=== PATIENT | female | born 1930 | race Caucasian/White ===

== ENCOUNTER 2017-02-14 21:23 | Inpatient (IN) | payer MEDICARE, BC ==
[~2017-02-14] VITALS: Ht 162.6 cm; Wt 81.7 kg
[~2017-02-14 21:23] MED LIST: ACEBUTOLOL HCL400 MG PO; ASPIRIN325 MG PO; CLOTRIMAZOLE-BE15 GM TOP; DILTIA XT240 MG PO; DILTIAZEM 24HR120 M1 PO; DULOXETINE HCL30 MG PO; GLUCOPHAGE XR750 MG PO; HYDROCODON-ACE1 EAC8 PO; LISINOPRIL20 MG PO; LISINOPRIL40 MG PO; METFORMIN HCL1000 MG PO; NORCO 10-325 T1 EACH PO; NORCO 5-325 TA1 EACH PO; NORCO 7.5-3251 EACH PO; OMEPRAZOLE40 MG PO; TERAZOSIN HCL10 MG PO; TERAZOSIN HCL5 MG PO; VITAMIN D2000 UNI1 PO; ZOFRAN4 MG PO
--- NOTE | 2017-02-15 00:15 | NUR ---
02/15/17 0015 Vivienne Mohr 0006 - PT ARRIVED TO PACU. OPA IN PLACE AND REMOVED BY RADIOLOGY ORDERLY AT 0007. PT ARRIVED WITH [address] ONE IN LEFT UPPER ARM AND 2ND PIV IN RIGHT WRIST (SAILINE LOCKED). BOTH PIVS WNL.
--- NOTE | 2017-02-15 01:15 | NUR ---
PT ARRIVED IN HER BED FROM PACU, REPORT RECEIVED FROM TRISHA CHI. PT IS ALERT/ORIENTED, DENIES PAIN AT THIS TIME. HAD SPINAL ANESTHESIA, DERMATOME AT T9. LUNGS CLEAR, 2L VIA NC, ATTEMPTED TO TITRATE DOWN TO RA, BUT PT DESATURATED. HR REGULAR. BOWEL TONES ACTIVE. BED BATH GIVEN, REDNESS NOTED TO COCCYX, BLANCHABLE, SMALL OPEN BLISTERS ALSO NOTED, PICTURES IN CHART, BARRIER CREAM APPLIED. CERRATO IN PLACE, DRAINING FREELY. 2 IV SITES, PATENT. DRESSING TO RIGHT ANKLE HAS MODERATE AMOUNT OF SEROSANGUINOUS DRAINAGE PRESENT, PLACED ABD UNDER HEEL. EXTERNAL FIXATION AND HEEL PRETECTORS IN PLACE. PT ORIENTED TO ROOM, CALL LIGHT WITHIN REACH. DENIES FURTHER REQUESTS AT THIS TIME.
--- NOTE | 2017-02-15 03:30 | NUR ---
PT CONTINUES TO DENY PAIN. 2L O2 VIA NC IN PLACE. DENIES NEEDS AT THIS TIME.
--- NOTE | 2017-02-15 06:23 | NUR ---
ASSESSMENT COMPLETED. PT IS ALERT/ORIENTED, DENIES PAIN. SPINAL ANESTHESIA HAS RESOLVED, PT HAS FULL SENSATION AND IS ABLE TO WIGGLE TOES. PEDAL PULSES WERE PALPABLE AND STRONG, CAP REFILL <3 SECONDS, EXTREMITES ARE WARM TO TOUCH. LUNGS CLEAR, 2L VIA NC, PULSE OX. HR REGULAR. BOWEL TONES ACTIVE. MODERATE AMOUNT OF SEROSANGUINOUS DRAINAGE UNDER RIGHT ANKLE/HEEL, ADDITIONAL ABD PLACED UNDERNEATH FOOT, EXTERNAL FIXATION IN PLACE. CERRATO IN PLACE, ONLY EMPTIED 90ML FOR THE PAST 4 HOURS, DR. ESPITIA NOTIFIED, NEW ORDERS FOR 1L NS BOLUS RECEIVED. PT REPORTS ITCHING, NUBAIN GIVEN. PT DENIES FURTHER REQUESTS, CALL LIGHT IS WITHIN REACH.
--- NOTE | 2017-02-15 06:27 | NUR ---
PT ALERT/ORIENTED. NO PAIN. SPINAL RESOLVED, FULL SENSATION, CAN WIGGLE TOES. CMS INTACT, PEDAL PULSES STRONG, CAP REFILL <3 SECONDS, EXTREMITIES WARM. LUNGS CLEAR, 2L VIA NC, PULSE OX. HR REGULAR. BOWEL TONES ACTIVE, NO NAUSEA, TOLERATING CLEAR LIQUIDS. NUBAIN GIVEN FOR ITCHING. CERRATO DRAINING FREELY, 1L NS BOLUS GIVEN FOR INADEQUATE UO. REDNESS/BLISTERS TO COCCYX, BLANCHABLE, PICS IN CHART. DRESSING TO RIGHT ANKLE HAS MODERATE AMOUNT OF DRAINAGE UNDERNEATH HEEL, ABD PLACED. EXTERNAL FIXATION, HEEL PROTECTORS IN PLACE, TEDS TO LLE. D5NS+20K @125, IV ABX: ZOSYN, ANCEF.
--- NOTE | 2017-02-15 07:00 | NUR ---
BEDSIDE HANDOFF REPORT RECEIVED FROM SERVICE DELIVERY CONSULTANT RN. PT RESTING IN BED, LEFT UNDISTURBED. IV FLUID BOLUS INFUSING.
--- NOTE | 2017-02-15 07:23 | OR ---
[facility] [address], [place] [address] Signed DATE OF SERVICE: 02/14/2017 PREOPERATIVE DIAGNOSIS: Grade 3 ankle fracture dislocation, open. POSTOPERATIVE DIAGNOSIS: Grade 3 ankle fracture dislocation, open. PROCEDURE PERFORMED: Irrigation and debridement of skin, subcutaneous tissue, and bone. Open reduction and application of external fixation, right ankle. SURGEON: Hossein Caldera MD. ASSISTANTS: Jennifer Basilio PA-C and JAI Henry. Jennifer was present for the entire surgery in critical positioning, retraction, holding reduction while the application of the fixture was obtained. ANESTHESIA: Spinal. BLOOD LOSS: Minimal. TOURNIQUET TIME: None. BRIEF HISTORY: Valentina is an 86-year-old female who suffered a ground level fall some time tonight while trying to close her door. She had apparently been incontinent of stool and had gross feces all over the foot, ankle, and bone. The laceration was 12 cm long and the bone was sticking out about 3 inches. Risks, benefits and alternatives of operative treatment discussed with her and she elected to proceed. DESCRIPTION OF PROCEDURE: Once the consent was obtained, she was taken to the operating room. After adequate anesthesia, she was placed on the operating table. All downside pressure points were well padded. The leg was prepped and draped in a standard sterile fashion. The bone was sticking out and we cleaned this meticulously using a scrub brush and regular Hibiclens. The ankle was then reduced, which was obtained fairly easily. It was then held in position and checked using image intensifier. The two 5.0 Schanz pins were then placed in the tibia and one in the talar neck and one in the calcaneus. The adjustable large external fixator was then applied to the pins and while the reduction was being held under image intensifier guidance, the fixture was tightened up. The reduction films looked good. We then washed out the wound in the bone using a total of 6 L antibiotic irrigation. The wound was then inspected. A pure oblique longitudinal laceration of the skin did not appear to be too compromised. We then elected to go ahead and close it Electronically Signed By: HOSSEIN CALDERA MD 02/15/17 0723 PATIENT NAME: MARIETTA BROOKS OPERATIVE REPORT DATE OF : 34 PHYSICIAN: HOSSEIN CALDERA MD REPORT #: [id number] REPORT IS CONFIDENTIAL AND NOT TO BE RELEASED WITHOUT AUTHORIZATION [address] [address] Signed using a wound winch type suture configuration. This pulled the skin together with no significant problems. The wounds were then dressed with Mepilex dressing, 4x8's, and Kerlix gauge. She tolerated the procedure well. All sponge, needle, and instrument counts were correct. Hossein Caldera MD BA/Cayla /[phone] Electronically Signed By: HOSSEIN CALDERA MD 02/15/17 0723 PATIENT NAME: MARIETTA BROOKS OPERATIVE REPORT DATE OF : 34 PHYSICIAN: HOSSEIN CALDERA MD REPORT #: [id number] REPORT IS CONFIDENTIAL AND NOT TO BE RELEASED WITHOUT AUTHORIZATION
--- NOTE | 2017-02-15 07:28 | NUR ---
MD TO BEDSIDE. CERRATO CATH ORDER CLARIFIED WITH MD, TO KEEP CERRATO CATH IN PLACE.
--- NOTE | 2017-02-15 07:55 | NUR ---
PT RESTING IN BED. PT DENIES PAIN. PT LUNG SOUNDS CLEAR, ON 2L NC. PT DENIES SOB, DENIES CHEST PAIN. PT DENIES NAUSEA, TOLERATING CLEAR LIQUID, ADVANCED TO REGULAR DIET, BOWEL TONES ACTIVE. PT WITH CERRATO CATH IN PLACE, LOW URINE OUTPUT, FLUID BOLUS INFUSING NOW. PT CMS INTACT, ABLE TO WIGGLE RIGHT TOES, PULSES PALPABLE. MODERATE AMOUNT OF SANGIUNOUS DRAINAGE TO RIGHT ANKLE DRESSING, ICE PACK IN PLACE. LLE CHAITANYA HOSE, BLE HEEL PROTECTORS. PT ASSISTED WITH ORDERING BREAKFAST. PT DENIES NEEDS AT THIS TIME.
[2017-02-15] MEDS ORDERED: GABAPENTIN100 MG PO ×2 (10:23→11:35)
[2017-02-15] MEDS ORDERED: CARTIA XT120 MG PO (10:23)
--- NOTE | 2017-02-15 11:35 | NUR ---
PT BLOOD GLUCOSE 461, MD NOTIFED, VERBAL ORDER TO GIVE SLIDING SCALE INSULIN AND ORDERED HOME MEDS SCHEDULED.
--- NOTE | 2017-02-15 11:47 | NUR ---
MED REC COMPLETE WITH SAFEWAY REFIL HISTORY AND CAREGIVER INTERVIEW.
--- NOTE | 2017-02-15 12:00 | NUR ---
PT RESTING IN BED. PT EATING LUNCH, POOR APPETITE. PT O2 SATS 98% ON 2L, WEANED TO 1L, CONTINUOUS PULSE OX IN PLACE, LUNG SOUNDS CLEAR. PT DENIES NAUSEA, BOWEL TONES ACTIVE. CMS INTACT, PULSES PALPABLE, ABLE TO WIGGLE TOES. HEEL PROTECTORS IN PLACE. PT DENIES NEEDS AT THIS TIME. DISCUSSED PLAN TO TRANSFER TO CHAIR THIS AFTERNOON, PT AGREEABLE.
--- NOTE | 2017-02-15 12:09 | NUR ---
SPOKE WITH PATIENT AND CAREGIVER MADDI [phone]. PATIENT HAS TWO CAREGIVERS. THEY ARE THERE 2 HOURS IN THE MORNING AND 2 HOURS EACH EVENING. 7 DAYS A WEEK. PT WANTS TO RETURN HOME AT DISCHARGE. DISCUSSED WITH HER THAT SHE WILL NEED SOME REHAB THERAPY TO SAFELY GET HOME. PATIENT STATES UNDERSTANDING BUT IS ADAMANT SHE WILL NOT GO TO A CORRECTION. AGREED THAT WE NEED TO WAIT UNTIL SATURDAY TO SEE HOW SHE IS DOING WITH THERAPY TO MAKE A DECISION. PATIENT HAS A SON BUT HE IS NOT PRESENT. CAREGIVER STATES THE SON HAS POA BUT IS SHE IS NOT ABLE TO COUNT ON HIM FOR HELP WITH CARE. CAREGIVER STATES PATIENTS DAUGHTER IS COMING FROM [place].
--- NOTE | 2017-02-15 13:29 | NUR ---
PT RESTING IN BED, ALERT AND ORIENTED. JOKED WITH ME I ENTERED RM. SHARED WITH ME HOW SHE BROKE HER ANKLE, AND THAT SHE IS A LITTLE EMBARRASED ABOUT THE WHOLE ORDEAL. SHE SEEMED TO TAKE IT IN STRIDE THOUGH. PT REQUESTED PRAYER. WILL CONTINUE TO FOLLOW
--- NOTE | 2017-02-15 14:04 | NUR ---
DAUGHTER DANNY BURKS CALLED AND PROVIDED WITH PT UPDATE, GIVEN PERMISSION FROM PT TO SPEAK WITH DAUGHTER. UPDATED ON SURGERY TO RIGHT ANKLE, PHYSICAL THERAPY AND PLAN FOR SWING BED. DAUGHTER STATES SHE IS TRYING TO COME OUT FROM [place] TO HELP.
--- NOTE | 2017-02-15 16:15 | NUR ---
PT RESTING IN CHAIR. PT REQUESTING PAIN MEDICATION, GIVEN 5MG OXYCODONE. PT WEANED TO ROOM AIR, SATS 93%, LUNG SOUNDS CLEAR. PT BOWEL TONED ACTIVE, DENIES NAUSEA. DISCUSSED PLAN OF CARE WITH PT, PT AGREEABLE TO SIT IN CHAIR UNTIL AFTER DINNER THEN WOULD LIKE TO REST IN BED. PT DENIES NEEDS AT THIS TIME.
--- NOTE | 2017-02-15 16:35 | NUR ---
After Bed bath this afternoon The nurse and I hoyered the patient to the chair.
--- NOTE | 2017-02-15 16:59 | NUR ---
PT LLUVIA SANDHU CALLED FOR UPDATE, GIVEN PREMISSION BY PT TO PROVIDE UPDATE.
--- NOTE | 2017-02-15 17:22 | NUR ---
PT BLOOD GLUCOSE 422, MD NOTIFIED, ORDER TO GIVE 11 UNITS INSULIN PER SLIDING SCALE. MD TO REVIEW MEDICATIONS.
--- NOTE | 2017-02-15 18:06 | NUR ---
PT ALERT/ORIENTED. PT WEANED TO RA, O2 SATS 93%, LUNG SOUNDS CLEAR. PT WORKED WITH PHYSICAL THERAPY, UNABLE TO STAND, ERNESTO LIFT TO CHAIR, NWB ON RLE. PT PAIN WELL CONTROLLED, GIVEN OXYCODONE X1. PT WITH POOR APPETITE, ADA DIET, SS INSULIN. PT SALINE LOCKED, IV ZOSYN. RLE WITH EXTERNAL FIXATOR, MODERATE AMOUNT OF DRAINAGE TO BACK OF HEEL. PT WITH CHAITANYA HOSE, HEEL PROTECTORS. PT WITH CERRATO CATH IN PLACE, DRAINING QS YELLOW URINE.
--- NOTE | 2017-02-15 19:05 | NUR ---
BEDSIDE SHIFT REPORT RECEIEVED FROM TRISHA ALMONTE. PT IS ALERT/ORIENTED, SITTING UP IN BED. RA. IV INFUSING WNL. CERRATO IN PLACE, DRAINING FREELY. DENIES NEEDS AT THIS TIME.
--- NOTE | 2017-02-15 21:23 | NUR ---
ASSESSMENT COMPLETED. ALERT/ORIENTED. PT STATES PAIN IS 2/10 AT REST, STATES IT INCREASED TO 7/10 WHILE I WAS FEELING PEDAL PULSES AND CHECKING CAP REFILL, 1 TAB OXYCODONE GIVEN. LUNGS CLEAR, SLIGHTLY DIM IN BASES, RA, PULSE OX. BOWEL TONES ACTIVE. CERRATO IN PLACE, DRAINING FREELY. DRESSING TO RIGHT ANKLE HAS MODERATE AMOUNT OF SEROSANGUINOUS DRAINAGE THAT IS REINFORCED WITH ABD. EXTERNAL FIXATION AND HEEL PROTECTORS IN PLACE, CHAITANYA HOSE TO LLE. CB, 5 UNITS NOVOLOG ADMINISTERED. PT DENIES FURTHER REQUESTS AT THIS TIME, CALL LIGHT IS WITHIN REACH. WILL CONTINUE TO MONITOR.
--- NOTE | 2017-02-15 21:33 | EKG ---
[facility] [address] [facility] [place] [address] Signed Normal sinus rhythm Moderate voltage criteria for LVH, may be normal variant Borderline ECG When compared with ECG of 13-JUL-2016 11:16, aberrant conduction is no longer present Nonspecific T wave abnormality no longer evident in Inferior leads Confirmed by ONOFRE SUMMERS MD ([id number]) on 02/15/2017 9:32:53 PM Electronically Signed By: ONOFRE SUMMERS MD 02/15/17 2133 PATIENT NAME: MARIETTA BROOKS Electrocardiogram DATE OF : 34 PHYSICIAN: ONOFRE SUMMERS MD REPORT #: [id number] REPORT IS CONFIDENTIAL AND NOT TO BE RELEASED WITHOUT AUTHORIZATION
--- NOTE | 2017-02-15 23:20 | NUR ---
CHECKED IN ON PT WHO STATED SHE'D BEEN MOVING AROUND IN BED AND NOW HER FOOT WAS BOTHERING HER, SHE ALSO STATED THAT THE BLANKETS FELT HEAVY ON HER TOES AND THAT IT WAS UNCOMFORTABLE. GAVE 1 TAB OF OXYCODONE TO TITRATE UP TO FULL DOSE. ALSO ADDED WIRE HALO TO FOOT OF BED SO THAT BLANKETS WOULD NOT REST ON PT'S FEET. PT STATED IV IN RIGHT WRIST WAS FEELING ITCHY. TOOK DOWN DRESSING TO EXAMINE, APPEARS TO BE IN PLACE, INFUSES WNL, NO REDNESS OR SWELLING NOTED. NEW DRESSING TO IV APPLIED, PT STATES IT FEELS BETTER. SHE DENIES FURTHER REQUESTS AT THIS TIME.
--- NOTE | 2017-02-16 02:44 | NUR ---
PT CURRENTLY SLEEPING, NO APPARENT DISTRESS. RESPIRATIONS EVEN AND UNLABORED. OXYGEN SATURATION 90% ON RA, HR:77. ZOSYN CONTINUES TO INFUSE. WILL CONTINUE TO MONITOR.
--- NOTE | 2017-02-16 04:00 | NUR ---
PT SLEEPING, NO APPARENT DISTRESS. RESPIRATIONS EVEN AND UNLABORED. ZOSYN INFUSION COMPLETED. NS INFUSING AT TKO. WILL CONTINUE TO MONITOR.
--- NOTE | 2017-02-16 04:57 | NUR ---
UNEVENTFUL SHIFT, PT SLEPT MAJORITY OF NIGHT. PAIN WELL CONTROLLED WITH PRN OXYCODONE, 5 MG GIVEN TWICE TO TITRATE TO FULL DOSE. LUNGS CLEAR, DIM IN BASES, RA, PULSE OX. HR REGULAR. BOWEL TONES ACTIVE, NO NAUSEA, ADA DIET, ACCUCHECKS, SLIDING SCALE. CERRATO IN PLACE DRAINING FREELY, UO QS. IV PATENT, RECEIEVED ZOSYN AND LAST DOSE OF ANCEF, NS AT TKO, PT IS VERY DIFFICULT IV START. DRESSING TO RIGHT ANKLE REMAINS UNCHANGED, MODERATE DRAINAGE NOTED ON GAUZE, REINFORCED WITH ABD. EXTERNAL FIXATOR, HEEL PROTECTORS, AND CHAITANYA TO LLE IN PLACE.
--- NOTE | 2017-02-16 06:08 | NUR ---
PT WOKE UP CONFUSED, WAS FOUND SITTING AT SIDE OF BED STATING SHE HAD TO GO TO BATHROOM. ASSISTED PT BACK TO BED AND REMINDED HER THAT SHE HAS A CERRATO. PT THOUGHT WE WERE IN [place], BUT WAS ABLE TO TELL ME THAT WE WERE AT [facility]. SHE COULDN'T TELL ME THE YEAR, BUT KNEW THE PRESIDENT. WHEN ASKED TO STATE HER BIRTHDAY, SHE KEPT SPELLING HER NAME, AFTER A FEW MINUTES SHE COULD SAY HER MONTH AND DAY OF BIRTHDAY, BUT WAS UNABLE TO SAY HER YEAR. RE-ORIENTED PT AND CHECKED BLOOD SUGAR: 170. ASSESSMENT COMPLETED. LUNGS CLEAR, DIM IN BASES, RA, SATS:95%. HR REGULAR. BOWEL TONES ACTIVE. DENIES PAIN AND NAUSEA. DRESSING TO RLE INTACT, NO NEW DRAINAGE. EDEMA NOTED IN BILATERAL FEET THIS MORNING, APPEARS NON-PITTING. PEDAL PULSES PALPABLE, CAP REFILL<3 SECONDS. BED ALARM NOW ON FOR SAFETY.
--- NOTE | 2017-02-16 06:14 | NUR ---
PT SLEPT WELL, PAIN WELL CONTROLLED WITH PRN OXYCODONE. WOKE SLIGHTLY CONFUSED THIS MORNING, RE-ORIENTED TO SURROUNDINGS, BLOOD SUGAR WAS 170. LUNGS CLEAR, DIM IN BASES, RA, PULSE OX. HR REGULAR. BOWEL TONES ACTIVE, NO NAUSEA. CERRATO IN PLACE, DRAINING FREELY. IV SL EXCEPT FOR IV ABX. ADA DIET, ACCUCHECKS, AND SLIDING SCALE. ERNESTO LIFT. BED ALARM ON FOR SAFETY. NON-PITTING EDEMA IN BILATERAL FEET. PEDAL PULSES PALPABLE, CAP REFILL <3 SECONDS, DENIES NUMBNESS AND TINGLING. EXTERNAL FIXATION, HEEL PROTECTORS, AND CHAITANYA TO LLE IN PLACE.
--- NOTE | 2017-02-16 07:05 | NUR ---
BEDSIDE HANDOFF REPORT RECEIVED FROM GRINDING MACHINE OPERATOR AUTOMATIC RN. PT RESTING IN BED. PT DENIES PAIN AT THIS TIME.
--- NOTE | 2017-02-16 08:40 | NUR ---
PT RESTING IN BED. PT DENIES PAIN. PT ON ROOM AIR, CONTINUOUS PULSE OX, O2 SATS 96%, LUNG SOUNDS CLEAR WITH DIMINISHED BASES. PT TOLERATING ADA DIET, BLOOD GLUCOE 166, GIVEN 1 UNIT SS INSULIN. PT CMS INTACT, PULSE PALPABLE, PT ABLE TO WIGGLE TOES. PT WITH DRESSING TO RLE, SMALL AMOUNT OF DRAINAGE PRESENT, UNCHANGED. PT WITH CHAITANYA HOSE TO LLE, BILATERAL HEEL PROTECTORS. PT WITH CERRATO CATH, DRAINING FREELY, YELLOW URINE. IV TO R WRIST NO LONGER PATENT, IV TO LUE PAINFUL TO FLUSH. IV ZOSYN HELD TO ESTABLISH NEW IV ACCESS. PT DENIES NEEDS AT THIS TIME.
--- NOTE | 2017-02-16 09:59 | NUR ---
NEW IV STARTED IN THE RIGHT ARM #22 GUAGE. OLD IV'S IN THE RIGHT WRIST AND THE LEFT UPPER ARM DC'D BOTH TIPS INTACT.
--- NOTE | 2017-02-16 10:05 | NUR ---
IV ACCESS OBTAINED. IV ZOSYN NOW INFUSING.
--- NOTE | 2017-02-16 10:23 | NUR ---
PT IS SITTING UP IN BED TALKING TO VISITOR. VITALS TAKEN. PT AGREED TO A BED BATH LATER ON
--- NOTE | 2017-02-16 14:29 | NUR ---
PT IS SITTING UP IN BED WATHCING TV. VITALS TAKEN. PT DID NOT NEED ANYTHING ELSE AT THE MOMENT
--- NOTE | 2017-02-16 15:45 | NUR ---
PT REQUESTING PAIN MEDICATION, GIVEN 10 MG OXYCODONE. PT BATH COMPLETED, PER/CERRATO CARE PERFORMED. PT ASSISTED TO CHAIR WITH ERNESTO LIFT. PT DENIES NEEDS AT THIS TIME.
--- NOTE | 2017-02-16 17:30 | NUR ---
PT SITTING IN CHAIR, EATING DINNER. PT BLOOD GLUCOSE 206, GIVEN 3 UNITS SS INSULIN. PT LUNG SOUNDS CLEAR WITH DIMINISHED BASES, ENCOURAGED I/S. PT DENIES NAUSEA. PT RATING PAIN 4/10 TO RLE. PT FOOT ELEVATED. PT DRESSING INTACT, DRAINAGE UNCHANGED. PT DENIES NEEDS AT THIS TIME.
--- NOTE | 2017-02-16 17:44 | NUR ---
PT ALERT/ORIENTED. PAIN WELL CONTROLLED WITH 10 MG OXYCODONE. PT ON ROOM AIR, CONTINUOUS PULSE OX. PT ERNESTO LIFT TO CHAIR. PT TOLERATING ADA DIET, DENIES NAUSEA, BOWEL TONES ACTIVE. PT WITH EXTERNAL FIXATOR TO RLE, DRESSING INTACT, DRAINAGE UNCHANGED. PT WITH HEEL PROTECTORS, CHAITANYA HOSE TO LLE. PT WITH CERRATO CATH, MARGINAL OUTPUT.
--- NOTE | 2017-02-16 18:19 | NUR ---
PT WAS SITTING UP IN CHAIR WAS TRANSFERED BACK TO BED VIA ERNESTO. PT ASKED FOR FRESH ICE WATER
--- NOTE | 2017-02-16 18:25 | NUR ---
URINE OUTPUT LOW, 475 FOR SHIFT, NOTIFIED, TELEPHONE ORDER FOR 500 ML LR BOLUS TO INFUSE OVER 1 HOUR. RBOV.
--- NOTE | 2017-02-16 19:47 | NUR ---
PT IS ALERT, ORIENTED VISITING WITH FRIEND, JUST COMPLETED LR BOLUS, CERRATO PATENT WITH LIGHT YELLOW URINE, DENIES DISCOMFORT. LEG ELEVATED. GOOD CMS TO FOOT/TOES. CALL LIGHT IN EASY REACH.
--- NOTE | 2017-02-16 23:30 | NUR ---
URINE OUTPUT 350ML, LIGHT YELLOW, PT RESTING COMFORTABLY AFTER RECIEVING OXYCODONE FOR R ANKLE PAIN.
--- NOTE | 2017-02-17 06:07 | NUR ---
PT SLEPT WELL, NO C/O NAUSEA AND DECLINED PAIN MEDICATION. IVF INFUSING. VOIDING DARK ORANGE/YELLOW URINE.
--- NOTE | 2017-02-17 06:32 | NUR ---
PT RESTED WELL, MEDICATED FOR PAIN X1, LG LOOSE BM THIS AM, URINE OUTPUT HAS IMPROVED DURING THE NIGHT. GOOD CMS TO R FOOT.
--- NOTE | 2017-02-17 07:00 | NUR ---
HANDOFF REPORT RECEIVED FROM GREASER HELPER RN. PT RESTING IN BED, LEFT UNDISTURBED.
--- NOTE | 2017-02-17 07:34 | NUR ---
PT BLOOD GLUCOSE 137, SS INSULIN HELD FOR GLUCOSE WITHIN PARAMETERS. PT COMPLAINT OF PAIN TO LEFT LEG. REPOSITIONED, CHAITAYNA HOSE TEMPORARILY REMOVED PER PT REQUEST. PT DENIES OTHER NEEDS AT THIS TIME.
--- NOTE | 2017-02-17 08:07 | NUR ---
PT RESTING IN BED. ASSISTED WITH MEAL SET-UP. PT LUNG SOUNDS CLEAR WITH EXPIRATORY WHEEZE NOTED TO BASES, CLEARED WITH COUGH, ENCOURAGED I/S, O2 SATS 95%. PT DENIES NAUSEA, TOLERATING ADA DIET. PT SALINE LOCKED. EDEMA NOTED TO BILATERAL FEET, 2+, PULSES PALPABLE, CMS INTACT. PT WITH EXTERNAL FIXATOR TO RLE, DRESSING INTACT, NO NEW DRAINAGE. CERRATO CATH IN PLACE, DRAINING CLEAR YELLOW URINE, QS. PT DENIES NEEDS AT THIS TIME.
--- NOTE | 2017-02-17 12:01 | NUR ---
PT SITTING IN CHAIR, EATIN LUNCH. DAUGHTER AND CAREGIVER AT BEDSIDE. BLOOD GLUCOSE 181, 3 UNITS SS INSULIN GIVEN. PT STATES PAIN TOLERABLE AT THIS TI,E PT DENIES NEEDS.
--- NOTE | 2017-02-17 15:43 | NUR ---
PT BATHED. PT RESTING COMFORTABLY IN BED. PT DENIES NEEDS AT THIS TIME.
--- NOTE | 2017-02-17 16:45 | NUR ---
PT RESTING IN BED. PT STATES PAIN TOLERABLE AT THIS TIME. PT DENIES NAUSEA, BOWEL TONES ACTIVE. PT LUNG SOUNDS CLEAR WITH DIMINISHED BASES, I/S ENCOURAGED. PT EXTERNAL FIXATOR TO RLE, UNCHANGED. CHAITANYA HOSE TO LLE, HEEL PROTECTOR IN PLACE. PT DENIES NEEDS AT THIS TIME.
--- NOTE | 2017-02-17 17:37 | NUR ---
PT HAD UNEVENTFUL DAY. PT WORKED WITH PHYSICAL THERAPY, CONTINUES TO BE ERNESTO LIFT TO CHAIR. PT ON ROOM AIR, DIMINISHED BASES, ENCOURAGE I/S. PT PAIN WELL MANAGED WITH 10 MG OXYCODONE. PT ON ADA DIET, SS INSULIN. EXTERNAL FIXATOR, DRAINAGE UNCHANGED, CMS INTACT, LEG ELEVATED. CHAITANYA HOSE AND HEEL PROTECTOR TO LLE. CERRATO CATH, DRAINING QS. HAD MEDIUM LOOSE BM.
--- NOTE | 2017-02-17 18:15 | NUR ---
PT HYPERTENSIVE, BP 182/89, HR 69. MD CALLED, VERBAL ORDER TO GIVE 2100 DOSE OF ACEBUTOLOL NOW. RVOV.
--- NOTE | 2017-02-17 20:03 | NUR ---
PT AWAKE MOSTLY AND WATCHING TV. RIGHT FOOT WARM, SWOLLEN. COMPLAINS FOOT IS PAINFUL, WILL MEDICATE IF ABLE
--- NOTE | 2017-02-17 21:30 | NUR ---
EYES CLOSED, RESP EVEN. PULSE OX READING 95% ON RA. RIGHT ANKLE PROPED ON PILLOW, WARM, SWOLLEN. HAD COMPLAINED OF PAIN, MED WITH PRN MEDICATION FOR PAIN IN HER RIGHT ANKLE.
--- NOTE | 2017-02-17 23:00 | NUR ---
PT RESTING, EYES CLOSED, RESP EVEN AND UNLABORED WITH OXYGEN READING 94% ON RA
--- NOTE | 2017-02-18 00:30 | NUR ---
PT WITH EYES CLOSED, RESP EVEN AND UNLABORED. O2 94 ON ROOM AIR. CERRATO WITH YELLOW URINE IN BAG.
--- NOTE | 2017-02-18 02:15 | NUR ---
EYES CLOSED, RESP EVEN AND UNLABORED. O2 SATS IN THE 90'S ON ROOM AIR.
--- NOTE | 2017-02-18 04:15 | NUR ---
PT WITH EYES CLOSED, RESP EVEN AND UNLABORED. PULSE OX, SATS IN 90'S ON RA.
--- NOTE | 2017-02-18 06:21 | NUR ---
SLEPT MOST OF SHIFT. MEDICATED FOR PAIN X1. EXTERNAL FIXATOR RIGHT ANKLE UNCHANGED, NO NEW DRAINAGE, ELEVATED ON PILLOW. CHAITANYA HOSE, HEEL PROTECTORS ON. CONTINUES ON ROOM AIR, OXYGEN LEVELS IN THE 90'S.
--- NOTE | 2017-02-18 08:45 | NUR ---
PT STATED SHE NEEDED TO HAVE A BM. ATTEMPTED TO GET PT ON BEDPAN BUT SHE HAD ALREADY BEEN INCONTINENT OF BM. PT CLEANED THOROUGHLY AND TRANSFERED TO CHAIR VIA ERNESTO. PT ALENA WELL. LINENS CHANGED, PT RECIEVED BEDBATH. PT ATE ALL OF BREAKFAST INDEPENDENTLY, ALENA WELL. LEFT ANKLE DRESSING INTACT, OLD DRAINAGE NOTED ON HEEL. PT ORIENTED TO ALL BUT FORGETFUL. DENIES PAIN OR OTHER CONCERNS AT THIS TIME. CALL LIGHT WITHIN REACH.
--- NOTE | 2017-02-18 11:45 | NUR ---
PT WORKED WITH PHYSICAL THERAPY. PT REQUESTED TO GO BACK TO BED. THIS RN AND MARIS Webster TRANSFERRED PT TO BED VIA [facility]. PT INCONTINENT OF BM. CLEAN ATTENDS APPLIED, LINENS CHANGED. PT PLACED IN POSITION OF COMFORT. LEFT LEG ELEVATED ON PILLOW. CALL LIGHT WITHIN REACH.
--- NOTE | 2017-02-18 12:15 | NUR ---
PT LAYING IN BED, TO TV ON. SHE GAVE ME A BIG SMILE I ENTERED. SHE SEEMS ALERT, AND ORIENTED. PT MENTIONED THAT SHE IS SLEEPING REALLY WELL THRU THE NIGHT. PAIN IS NOW CONTROLLED MUCH BETTER. REQUESTED PRAYER, WILL FOLLOW NEEDED
--- NOTE | 2017-02-18 17:30 | NUR ---
CIRILO RICO IN ROOM PERFORMING PICC PLACEMENT.
--- NOTE | 2017-02-18 18:15 | NUR ---
PICC PLACED BY CIRILO RICO, PT ALENA JAIN.
--- NOTE | 2017-02-18 18:52 | NUR ---
DR. ESPITIA ROUNDED ON PT. REMOVED LEG ANKLE DRESSING AND ASSESSED SITE. SUTURES INTACT, NO DRAINAGE NOTED. PIN SITES WITHOUT REDNESS, INFLAMMATION OR DRAINAGE. REDRESSED WITH MEPILEX AND KERLEX PER DR. ESPITIA. PT ALENA WELL.
--- NOTE | 2017-02-18 18:57 | NUR ---
PT SITTING UP EATING DINNER AFTER PROCEDURE, ALENA WELL. DENIES NEEDS OR CONCERNS AT THIS TIME. CALL LIGHT WITHIN REACH.
--- NOTE | 2017-02-18 19:20 | NUR ---
IN TO MEET PT, REPORT RECIVED. PT IN BED RESTING, WATCHING TV. PT PLEASANT AND ORIENTED. DRSG ASSESSED, CLEAN, DRY AND INTACT. PT DENIES PAIN AT THIS TIME. TEDS, HEEL PROTECTOR AND CRADDLE IN PLACE. NO FURTHER NEEDS AT THIS TIME. FRESH WATER GIVEN. CALL LIGHT WITHIN REACH.
--- NOTE | 2017-02-18 19:54 | NUR ---
BLADDER SCANNED 375ML. NURSE NOTIFIED.
--- NOTE | 2017-02-18 23:05 | NUR ---
DR. SUMMERS NOTIFIED OF NO UO. ADVISED BLADDER SCAN > 550. ORDER GIVEN TO STRAIGHT CATH X1 AND SEE IF UO IMPROVES.
--- NOTE | 2017-02-18 23:15 | NUR ---
PT STRAIGHT CATH'D, 425 RETURNED. PT TOLERATED WELL. NO FURTHER NEEDS AT THIS TIME. CALL LIGHT WITH IN REACH.
--- NOTE | 2017-02-19 01:00 | NUR ---
IN TO CHECK ON PT, PT APPEARS TO BE SLEEPING. NO APPARENT DISTRESS NOTED. CALL LIGHT WITH IN REACH.
--- NOTE | 2017-02-19 02:58 | NUR ---
IN TO CHECK ON PT, PT APPEARS TO BE SLEEPING. NO APPARENT DISTRESS NOTED. CALL LIGHT WITH IN REACH.
--- NOTE | 2017-02-19 04:27 | NUR ---
PT HAS HAD UNEVENTFUL SHIFT, RESTED WELL. PRN PAIN MEDICATION GIVEN X1. ESTERNAL FIXATOR IN THE R ANKLE. DRSG CLEAN, DRY AND INTACT. PT ON RA. CERRATO DC'D 02/18/17 @ 1500, NO UO. BLADDER SCAN FOR > 550. PT STRAIGHT CATH X1, 475 RETURN. PT USES ERNESTO LIFT DUE TO LLE WEAKNESS. PT ON RA. CHAITANYA HOSE AND HEEL PROTECTOR IN PLACE.
--- NOTE | 2017-02-19 05:43 | NUR ---
IN TO BLADDER SCAN PT, BLADDER SCAN 309.
--- NOTE | 2017-02-19 06:15 | NUR ---
DR. SUMMERS NOTIFIED OF NO UO IN THE PAST 4 HOURS. AWARE OF RETURN OF 475 AFTER STRAIGHT CATH. ADVISE BLADDER SCAN RESULTS OF 309. PER DR. SUMMERS OKAY TO MONITOR AND SEE HOW PT DOES THROUGH OUT THE DAY.
--- NOTE | 2017-02-19 07:17 | NUR ---
BEDSIDE REPORT, PT ALERT AND ORIENTED NO COMPLAINTS AT THIS TIME
--- NOTE | 2017-02-19 07:52 | NUR ---
AM MED PASS CMPLETE WITH 5MG OXYCODONE PRN. PT SAT UP IN BED FR BREAKFAST.
--- OUTSIDE RECORDS SUMMARY | 2017-02-19 08:19 | XMS ---
Demographics + + + | Address | [address] | | | [place] [address] | + + + | Preferred Language | Unknown | + + + | Marital Status | Unknown | + + + | Catholic Affiliation | Unknown | + + + | Race | Unknown | + + + | Ethnic Group | Unknown | + + + Author + + + | Author | [facility] | + + + | Organization | [facility] | + + + | Address | [address] | | | [place] [address] | + + + | Phone | | + + + Care Team Providers + + + + | Care Nephrology Social Worker Name | Role | Phone | + + + + Unavailable | Unavailable | + + + + PROBLEMS +---------+ + + +--------+ + + | Type | Condition | ICD9-CM | VHG25-UI | Onset | Condition | SNOMED | | | | Code | Code | Dates | Status | Code | +---------+ + + +--------+ + + | Problem | NONINFL | 620.9 | | | Active | [id number] | | | DIS | | | | | | | | OVA/ADNX | | | | | | | | NOS | | | | | | +---------+ + + +--------+ + + | Problem | Osteoporos | 733.00 | | | Active | [id number] | | | is | | | | | | +---------+ + + +--------+ + + | Problem | Lumbago | 724.2 | | | Active | [id number] | +---------+ + + +--------+ + + | Problem | Essential | | I10 | | Active | [id number] | | | (primary) | | | | | | | | hypertensi | | | | | | | | on | | | | | | +---------+ + + +--------+ + + | Problem | DM type 2 | | E11.9 | | Active | [id number] | | | (diabetes | | | | | | | | mellitus, | | | | | | | | type 2) | | | | | | +---------+ + + +--------+ + + | Problem | Diabetes | 250.00 | | | Active | [id number] | +---------+ + + +--------+ + + | Problem | Arthritis | 716.90 | | | Active | 1521345 | +---------+ + + +--------+ + + | Problem | Hypertensi | 401.9 | | | Active | [id number] | | | on | | | | | | +---------+ + + +--------+ + + | Problem | Hypertensi | 401.9 | | | Active | [id number] | | | on | | | | | | +---------+ + + +--------+ + + ALLERGIES + + + + +--------+ | Substance | Reaction | Event Type | Date | Status | + + + + +--------+ | Sulfa | hives | Drug Allergy | Dec, | Active | + + + + +--------+ SOCIAL HISTORY No smoking Hx information available PLAN OF CARE + +---------+ | Activity | Details | + +---------+ +---+ | | +---+ + + + | Follow Up | prn Reason:null | + + + VITAL SIGNS + + + + | Height | 67 in | 2016-12-19 | + + + + | Weight | 189.6 lbs | 2016-12-19 | + + + + | BMI | 29.69 kg/m2 | 2016-12-19 | + + + + | Temperature | 97.8 degrees Fahrenheit | 2016-12-19 | + + + + | Heart Rate | 71 /min | 2016-12-19 | + + + + | Blood pressure systolic | 181 mm Hg | 2016-12-19 | + + + + | Blood pressure diastolic | 77 mm Hg | 2016-12-19 | + + + + MEDICATIONS + + + + + + + +--------+ | Medicati | Instruct | Dosage | Frequenc | Start | End Date | Duration | Status | | on | ions | | y | Date | | | | + + + + + + + +--------+ | Terazosi | Orally | 1 | 24h | | | 30 | Active | | n HCl 10 | Once a | capsule | | | | day(s) | | | mg | day | | | | | | | + + + + + + + +--------+ | Hui-Mag | | | | | | | Active | | | | | | | | | | | 133-5-10 | | | | | | | | | MG | | | | | | | | + + + + + + + +--------+ | Lidoderm | External | 1 patch | | 30 Oct, | | | Active | | 5 % | ly Once | to | | 2014 | | | | | | a day as | intact | | | | | | | | needed | skin | | | | | | | | | remove | | | | | | | | | after 12 | | | | | | | | | hours | | | | | | + + + + + + + +--------+ | Diltiaze | Orally | 1 | 24h | 17 Sep, | | 90 days | Active | | m HCl CR | Once a | capsule | | 2013 | | | | | 120 MG | day | every | | | | | | | | | morning | | | | | | | | | on an | | | | | | | | | empty | | | | | | | | | stomach | | | | | | + + + + + + + +--------+ | Cymbalta | Orally | 1 tab(s) | 12h | 23 Nov, | | 30 | Active | | 30 MG | bid | | | 2014 | | day(s) | | + + + + + + + +--------+ | Metformi | po bid | 1 tab | 12h | | | 60 | Active | | n HCl | | | | | | | | | 1,000 MG | | | | | | | | + + + + + + + +--------+ | Hydrochl | Orally | 1 tablet | 24h | 24 Jan, | | 30 | Active | | orothiaz | Once a | | | 2013 | | | | | santi 25 | day | | | | | | | | MG | | | | | | | | + + + + + + + +--------+ | Acebutol | | TAKE ONE | | | | | Active | | ol HCl | | CAPSULE | | | | | | | 400MG | | BY | | | | | | | | | MOUTH | | | | | | | | | TWICE | | | | | | | | | DAILY | | | | | | + + + + + + + +--------+ | Osborne | Orally | 1 tab(s) | | 04 Wilfredo, | | 30 | Active | | 10-325 | bid | | | 2016 | | | | | MG | taper | | | | | | | | | off | | | | | | | + + + + + + + +--------+ | Prilosec | Orally | 1 tab(s) | 24h | 24 Tim, | | 30 | Active | | 40 MG | once a | | | 2015 | | day(s) | | | | day | | | | | | | + + + + + + + +--------+ | Diltiaze | | TAKE ONE | | | | | Active | | m HCl ER | | CAPSULE | | | | | | | Coated | | BY | | | | | | | Beads | | MOUTH | | | | | | | 120 MG | | EVERY | | | | | | | | | MORNING | | | | | | | | | ON AN | | | | | | | | | EMPTY | | | | | | | | | STOMACH. | | | | | | + + + + + + + +--------+ | Neuronti | Orally | 1 am 1 | 8h | 04 Wilfredo, | | 30 | Active | | n 100 MG | tid | at 1pm 2 | | 2016 | | | | | | | at hs | | | | | | + + + + + + + +--------+ | Tylenol | Orally | 1 tab(s) | 24h | | | | Active | | Arthriti | daily | | | | | | | | s Pain | | | | | | | | | 650 MG | | | | | | | | + + + + + + + +--------+ RESULTS No Results PROCEDURES + + + + + | Procedure | Date Ordered | Related Diagnosis | Body Site | + + + + + | Office Visit, Est | December 19, 2016 | | | | Pt., Level 3 | | | | + + + + + IMMUNIZATIONS No Known Immunizations"
--- NOTE | 2017-02-19 08:56 | NUR ---
PT SITTING UP IN BED EYES CLOSED RR EVEN, NO DISTRESS NOTED. PT APPEARS TO BE SLEEPING AT THIS TIME
--- NOTE | 2017-02-19 09:22 | NUR ---
AND NOTIFIED OF NO DVT PROPHYLACTIC MEDICATION ORDERED AT THIS TIME.
--- NOTE | 2017-02-19 11:55 | NUR ---
MODEL BUILDER DISPLAY X2 IN ROOM GIVING BED BATH.
--- NOTE | 2017-02-19 16:04 | NUR ---
PT RESTING QUIELTY IN BED EYES CLOSED RR EVEN, NO DISTRESS NOTED, PT APPEARS TO BE SLEEPING. PT ALERT TO VOICE AT BEDSIDE.
--- NOTE | 2017-02-19 18:13 | NUR ---
PT HAS BEEN INCONT. OF BOWEL AND BLADDER. BM X3. HOYERED TO RECLINER THIS AFTERNOON. PT HAS BEEN SLEEPING OFF/ON OVER SHIFT. ALERT FOR MEALS. NOT REPORTING PAIN OR REQUESTING PAIN COVERAGE SINCE THIS AM. PHYSICAL THERAPY ATTEMPTED TO ASSIST PT TO STAND THIS WAS NOT SUCCESSFUL. ICE TO RIGHT ANKLE INTERMITTEN, WARM PACK TO PICC SIGHT INTERMITTENLY. RIGHT ANKLE ELEVATED ON PILLOW. PT EATING WELL.
--- NOTE | 2017-02-19 19:42 | NUR ---
Before dinner Me and another staff person Hoyered the patient to the chair.
--- NOTE | 2017-02-19 20:27 | NUR ---
IN TO SEE PT, PT STATES "MY FOOT IS KILLING ME". PAIN MEDICATION GIVEN. PT IS PLEASENT AND ORIENTED, WATCHING TV. ASSESSMENT DONE AND MEDICATION GIVEN. TEDS AND HEELS IN PLACE. NO FURTHER NEEDS AT THIS TIME. FRESH WATER GIVEN. CALL LIGHT WITH IN REACH.
--- NOTE | 2017-02-19 22:52 | NUR ---
IN TO CHECK ON PT, PT SLEEPING. NO APPARENT DISTRESS NOTED. CALL LIGHT WITH IN REACH.
--- NOTE | 2017-02-20 00:40 | NUR ---
IN TO ANSWER CALL LIGHT, PER PT "MY LEG IS KILLING ME". PT RATES PAIN A 6/10 IN THE R LEG. PRN MEDICATIN GIVEN. CALL LIGHT WITH IN REACH.
--- NOTE | 2017-02-20 02:24 | NUR ---
IN TO CHECK ON PT, PT APPEARS TO BE SLEEPING. RESPIRATIONS EVEN AND UNLABORED. PULSE OX IN PLACE. CALL LIGHT WITH IN REACH.
--- NOTE | 2017-02-20 04:26 | NUR ---
PT HAS SLEPT INTERMITTENTLY. PLEASANT AND ORIENTED, CALLS APPROPRIATLY. PAIN MEDICATION GIVEN X2. ICE PACKS TO R ANKLE. INCONT. OF BOWEL AND BLADDER. ERNESTO LIFT. PICC LINE WNL. DRSG CLEAN, DRY AND INTACT.
--- NOTE | 2017-02-20 05:12 | NUR ---
PT CALLED FOR ATTENDS CHANGE. PT TOLERATED WELL. REPOSITIONED AND ICE APPLED TO R ANKLE. VITALS OBTAINED. NO FURTHER NEEDS AT TIS TIME. CALL LIGHT WITH IN REACH.
--- NOTE | 2017-02-20 07:19 | NUR ---
BEDSIDE REPORT FROM RONDA RICO AND TREY RICO. PT RESTING IN BED ALERT THIS AM.
--- NOTE | 2017-02-20 08:39 | NUR ---
NURSE LAXMI CALLED FOR ASSISTANCE IN GETTING PATIENT OFF BED SOSA. NURSE LAXMI AND I CHANGED PATIENT AND CLEANED HER UP. SHE IS SET UP FOR BREAKFAST. CALL LIGHT IS IN REACH. PATIENT STATED SHE DOES NOT NEED ANYTHING AT THIS TIME.
--- NOTE | 2017-02-20 10:21 | NUR ---
PT DISCHARGEING TO SWING BED
--- NOTE | 2017-02-25 07:09 | DS ---
[facility] [address] [place], [place] [address] Signed DISCHARGE DATE: 02/20/17 ADMISSION DIAGNOSIS Open fracture dislocation right ankle. DISCHARGE DIAGNOSIS Open fracture dislocation right ankle. PROCEDURE PERFORMED Open reduction and application of external fixator, right ankle. BRIEF HISTORY Valentina is an 86-year-old female who suffered a ground level fall at home creating a grade 3 open fracture dislocation of her ankle. This was operated on emergently and she did well. She was kept on IV antibiotics due to fecal soiling of the wound. She had good pain control with Oxycodone and [place]. She is not able to get herself in and out of bed and felt it would to be stable for discharge to transitional care bed here in the hospital. She will be continued on her current medications including the IV antibiotics. Plan will be to return her to the operating room in 2 weeks and remove the fixator and perform open reduction and internal fixation of fractures. She is okay with this and we will continue with her current physical therapy regimen as well. Hossein Caldera MD BA/Cayla / [phone] Electronically Signed By: HOSSEIN CALDERA MD 02/25/17 0709 PATIENT NAME: MARIETTA BROOKS Fitz DISCHARGE SUMMARY DATE OF : 34 PHYSICIAN: HOSSEIN CALDERA MD REPORT #: [id number] REPORT IS CONFIDENTIAL AND NOT TO BE RELEASED WITHOUT AUTHORIZATION
== END 2017-02-20 10:10 | disposition swing bed (61) | DRG 494 ==
LOC: ED 21:23 → MS 22:02 → ED 22:02 → MS 02-15 00:05
PROVIDERS: ADMIT Specialist
PROC: 0QHG05Z Insertion of External Fixation Device into Right Tibia, Open Approach (ICD-10-PCS; 2017-02-14)
PROC: 0QSG04Z Reposition Right Tibia with Internal Fixation Device, Open Approach (ICD-10-PCS; principal; 2017-02-14 23:01)
PROC: 0QSG04Z Reposition Right Tibia with Internal Fixation Device, Open Approach (ICD-10-PCS; 2017-02-14 23:01)
DX: S82.841C Displaced bimalleolar fracture of right lower leg, initial encounter for open fracture type IIIA, IIIB, or IIIC (principal); W01.0XXA Fall on same level from slipping, tripping and stumbling without subsequent striking against object, initial encounter; E11.65 Type 2 diabetes mellitus with hyperglycemia; I10 Essential (primary) hypertension; K21.9 Gastro-esophageal reflux disease without esophagitis; G89.29 Other chronic pain; E86.0 Dehydration; R19.7 Diarrhea, unspecified; Z88.2 Allergy status to sulfonamides; Z79.4 Long term (current) use of insulin; B37.2 Candidiasis of skin and nail; F32.9 Major depressive disorder, single episode, unspecified; Z90.710 Acquired absence of both cervix and uterus
CPT/HCPCS: 01480; 36415; 36556; 71010; 73560; 73600; 73610; 80048; 80053; 81001; 83036; 85025; 90715; 93005; 93010; 94762; 97110; 97163; 97530; C1713; C1751; J0690; J1100; J1335; J1650; J1885; J2250; J2274; J2300; J2405; J2543; J2704; J2765; J3010; J7030; J7120

== ENCOUNTER 2017-02-20 10:10 | Inpatient (IN) | payer MEDICARE, BC ==
[~2017-02-20] VITALS: Ht 162.6 cm; Wt 81.7 kg
[~2017-02-20 10:10] MED LIST changes: +CARTIA XT120 MG PO; +GABAPENTIN100 MG PO
--- NOTE | 2017-02-20 10:45 | NUR ---
PATIENT ON SWINGBED STATUS AND WILL PROBABLY BE HERE FOR ABOUT 3 WEEKS. CURRENT DIET IS 2000 ADA. SHE ATE 100% OF HER BREAKFAST OF TOAST, OVER EASY EGGS, BLUEBERRIES, AND V8. SHE DIDN'T WANT THE APPLESAUCE SHE IS NOT FOND OF IT. GOOD APPETITE SO FAR. NO DIETARY ISSUES AT THIS TIME. BLOOD SUGARS IN GOOD CONTROL. WILL CONTINUE TO BE AVAILABLE IF NEEDED.
--- NOTE | 2017-02-20 11:12 | NUR ---
PT RESTING IN BED EYES CLOSED RR EVEN 20 BPM. NO DISTRESS NOTED. PT APPEARS TO BE SLEEPING
--- NOTE | 2017-02-20 11:47 | NUR ---
PT RESTING QUIETLY IN BED EYES CLOSED RR EVEN. NO DISTRESS NOTED. PT APPEARS TO BE SLEEPING
--- NOTE | 2017-02-20 12:12 | NUR ---
PT HAD INCONT. OF BOWEL, SOFT NOT FORMED. PT TOLERATED ROLLING IN BED WELL. NO REPORT OF PAIN. PT REFUSED TO ALLOW STAFF TO ERNESTO TO RECLINER AT THIS TIME. PT AGREED TO GET UP LATER TODAY.
--- NOTE | 2017-02-20 14:22 | NUR ---
PT SITTING UP ALERT IN BED, REQUEST PAIN COVERAGE. SAID HER PAIN IS 7/10. 5MG PO OXYCODONE PRN ADMINISTERED
--- NOTE | 2017-02-20 14:49 | NUR ---
PT RESTING IN BED EYES CLOSED RR EVEN, NO DISTRESS NOTED. PT APPEARS TO BE SLEEPING
--- NOTE | 2017-02-20 17:37 | NUR ---
PT HAS SLEPT INTERMITTENLY OVER SHIFT, ALERT TO NAME. HAS HAD PAIN COVERAE TWICE 5MG OXYCODONE PO PRN FOR 7/10 BOTH TIME. PHYSICAL THERAPY ATTEMPTED TO STAND PT AT BEDSIDE, PT WAS UNABLE TO STAND. GOOD APPETITE, SOFT STOOLS THREE TIMES ON DAY SHIFT, INCONT. OF BOWEL AND BLADDER. DRESSING TO RIGHT ANKLE CDI. ICE TO SITE
--- NOTE | 2017-02-20 19:10 | NUR ---
IN TO MEET PT, REPORT RECV'D FROM LAXMI RICO. PT RESTING IN BED WATCHING TV. DRSG CLEAN DRY AND INTACT. FRESH WATER AT BEDSIDE. NO FURTHER NEEDS AT THIS TIME. CALL LIGHT WITH IN REACH.
--- NOTE | 2017-02-20 22:18 | NUR ---
IN TO CHECK ON PT, PT RESTING IN BED. PT STATES "MY LEG IS HURTING." RATES HER PAIN A 6/10 IN THE R LEG. LEG REPOSITIONED AND ICE APPLIED FOR COMFORT. NO FURTHER NEEDS AT THIS TIME. CALL LIGHT WITH IN REACH. WILL CONTINUE TO MONITOR PAIN.
--- NOTE | 2017-02-21 00:31 | NUR ---
IN TO CHECK ON PT, PT AWAKE. PT C/O OF 5/10 PAIN IN HER R LEG. PRN MEDICATIONS GIVEN. NO FURTHER NEEDS AT THIS TIME. CALL LIGHT WITH IN REACH. WILL CONTINUE TO MONITOR PAIN.
--- NOTE | 2017-02-21 02:52 | NUR ---
IN TO CHECK ON PT, PT APPEARS TO BE SLEEPING. RESPIRATION EVEN AND UNLABORED. CALL LIGHT WITH IN REACH.
--- NOTE | 2017-02-21 04:26 | NUR ---
PT HAS HAD UNEVENTFUL SHIFT, SLEPT WELL. C/O PAIN DURING THE FIRST PART OF SHIFT OF -01/21. SCHEDULED AND PRN MEDICATION GIVEN. PT IS INCONTIENT OF URINE AND STOOL. PT HAS ATTEMPTED TO STAND WITH PT, BUT HAS BEEN UNSUCCESSFUL. ERNESTO LIFT TO CHAIR. PT PLEASANT AND ORIENTED.
--- NOTE | 2017-02-21 05:59 | NUR ---
IN TO CHANGE PT'S ATTENDS. PT DROWSY, AWAKENS TO VOICE AND TOUCH. RESPONDS TO COMMANDS. PULSE OX IN PLACE. RR 15, EVEN AND UNLABORED. CALL LIGHT WITH IN REACH. WILL CONTINUE TO MONITOR.
--- NOTE | 2017-02-21 07:05 | NUR ---
BEDSIDE HANDOFF REPORT RECEIVED FROM SHOW CARD WRITER RN. PT SLEEPING, LEFT UNDISTURBED.
--- NOTE | 2017-02-21 08:31 | NUR ---
AWAKE IN BED EATING BREAKFAST. EMPTY GARBAGE. FRESH ICE WATER. BOOST IN BED. FRESH ICE PACKET TO RIGHT ANKLE. CALL LIGHT IN REACH.
--- NOTE | 2017-02-21 08:37 | NUR ---
PT RESTING IN BED. PT EATING BREAKFAST. PT RATING PAIN 2/10 TO RIGHT ANKLE. ON ROOM AIR, O2 SATS 93%. DENIES NAUSEA, TOLERATING REGULAR DIET. BOWEL TONES ACTIVE. EXTERNAL FIXATOR TO RLE, DRESSING CDI, PULSE PALPABLE. CHAITANYA HOSE TO LLE, HEEL PROTECTOR IN PLACE. PT DENIES NEEDS AT THIS TIME.
--- NOTE | 2017-02-21 10:39 | NUR ---
PT REQUESTING PAIN MEDICATION. RATING PAIN 7/10 TO RIGHT LEG. PICC LINE FLUSHED, PATENT, BLOOD RETURN, HEPARIN LOCKED. PT DENIES OTHER NEEDS AT THIS TIME.
--- NOTE | 2017-02-21 10:51 | NUR ---
Medications reconciled with pharmacy records and pharmacist intervention prior to becoming swing-bed patient.
--- NOTE | 2017-02-21 11:45 | NUR ---
PT SITTING IN CHAIR. PT DENIES NEEDS AT THIS TIME.
--- NOTE | 2017-02-21 11:48 | NUR ---
GOT UP IN CHAIR W/ERNESTO. DID BED BATH. LINEN CHANGE. SHAMPOO CAP. EMPTY CARBAGE. CALL LIGHT IN REACH. TOOK BREAKFAST TRAY.
--- NOTE | 2017-02-21 12:30 | NUR ---
SPOKE WITH PATIENT AND CAREGIVER, MADDI, IN ROOM. PATIENT STATES SHE DOESN'T WANT TO GO TO PENITENTIARY. SHE STATES "SOMEONE TOLD ME I HAVE TO GO TO ONE". DISCUSSED WITH HER THAT SHE IS STAYING HER FOR NOW TO WORK ON THERAPY. DISCUSSED WITH HER THAT AT END OF HER STAY HERE WE WILL KNOW MORE WHAT SHE NEEDS NEXT. DISCUSSED THAT SHE CAN HELP HER POSSIBLE RETURN HOME BY WORKING HARD WITH THERAPY AND THE STAFF. SHE STATES SHE WILL. CAREGIVER STATES THEY WILL LOOK INTO MORE HELP AT HOME, BUT AT THIS POINT SHE WOULD ONLY HAVE ABOUT 4 HOURS A DAY WITH SOMEONE AT HOME. SHE DOES STATE THEY DO HAVE A ERNESTO LIFT AT HOME IF SHE CAN'T WALK. DISCUSSED SHE WOULD STILL NEED 24 HOUR CARE IF THAT IS THE CASE. WE AGREED TO WAIT AND DISCUSS THIS AGAIN AFTER SHE HAS MORE TIME HERE.
--- NOTE | 2017-02-21 14:22 | NUR ---
PT SITTING IN CHAIR. PT DENIES NEEDS AT THIS TIME.
--- NOTE | 2017-02-21 14:27 | NUR ---
UP IN CHAIR. NEW ICE WATER. PATIENT IS DOING WELL AND HAS CALL LIGHT IN REACH.
--- NOTE | 2017-02-21 16:48 | NUR ---
PT ERNESTO LIFT BACK TO BED. PERICARE PEROFRMED. PT WITH SMALL LOOSE BM. PT REQUESTING PAIN MEDICATION, GIVEN 10 MG OXYCODONE. IV ABX INFUSING. PT DENIES NEEDS AT THIS TIME.
--- NOTE | 2017-02-21 17:18 | NUR ---
PT ALERT/ORIENTED. ON ROOM AIR, CONTINUOSU PULSE OX. PT ERNESTO LIFT UP TO CHIAR, ABLE TO STAND X1 WITH P.T. PT TOLERATING REGULAR DIET. INCONTINENT OF STOOL AND URINE. EXTERNAL FIXATOR WITH DRESSING INTACT, CMS INTACT, LEG ELEVATED. CHAITANYA HOSE AND HEEL PROTECTOR TO LLE. PICC LINE TO R ARM, PATENT, HEPARINE LCOKED.
--- NOTE | 2017-02-21 19:38 | NUR ---
RECEIVED REPORT FROM DAY SHIFT RN. PATIENT IS RESTING IN BED. PATIENT DENIES ANY PAIN AT THIS TIME. PATIENTS RIGHT ANKLE ELEVATED ON PILLOW AND HEEL FLOATED. PATIENT DENIES ANY NEEDS AT THIS TIME. CALL LIGHT IN REACH.
--- NOTE | 2017-02-21 20:21 | NUR ---
PATIENT REPOSITIONED. PATIENT IS REQUESTING PAIN MEDICATION. WILL ADMINISTER SCHEDULED PAIN MEDICATION. PATIENT DENIES ANY FURTHER NEEDS AT THIS TIME. CALL LIGHT IN REACH.
--- NOTE | 2017-02-21 22:05 | NUR ---
PATIENT ASSESMENT COMPLETED. PATIENT RATES PAIN AT A 7/10. PATIENT DESCRIBES THE PAIN "UNCOMFORTABLE". PATIENT GIVEN SCHEDULED PAIN MEDICATION. PATIENT DENIES THE NEED FOR ADDITIONAL PAIN MEDICATION. EVENING MEDICATIONS GIVEN PER ORDE. PATIENT IS ON A POULSE OX AND READINGS ARE WNL. PATIENT IS ON RA. PATIENT HAS TEDHOSE AND HEEL PTOTECTOR ON LEFT LEG. PATIENTS RIGHT LEG IS ELEVATED ON A PILLOW AND ANKLE IS FLOATED. PATIENTS ATTEND IS DRY AT THIS TIME. PATIENT HAS AN EXTERNAL FIXATOR IN PLACE ON HER RIGHT ANKLE. PINS ARE C/D/I. PATIENTS DRESSING DOES HAVE OLD DRAINAGE ON THE MEPLX ON HER RIGHT ANKLE. PATIENT IS AAOX3. PATIENT DENIES ANY FURTHER NEEDS AT THIS TIME. CALL LIGHT IS WITHIN REACH.
--- NOTE | 2017-02-22 00:17 | NUR ---
PATIENT IS RESTING IN BED WITH EYES CLOSED. PULSE OX READINGS ARE WNL. CALL LIGHT IN REACH.
--- NOTE | 2017-02-22 02:12 | NUR ---
PATIENTS ATTENED CHANGED. PATIENT HAD A BOUT OF INCONTINENCE OF URINE AND STOOL. PATIENT DENIES ANY FURTHER NEEDS AT THIS TIME. CALL LIGHT IN REACH.
--- NOTE | 2017-02-22 04:06 | NUR ---
PATIENT IS RESTING IN BED WITH EYES CLOSED. PULSE OX READINGS ARE WNL. CALL LIGHT IN REACH.
--- NOTE | 2017-02-22 04:57 | NUR ---
PATIENT RESTED WELL THROUGHOUT THE SHIFT. PATIENT ONLY RECEIVED SCHEDULED PAIN MEDICATION. PATIENT REPOSITIOINED OFTEN. PATIENT HAD X1 BM. PATIENT IS ON A REG DIET AND TOLERATING WELL. PATIENT IS A 2P ERNESTO ASSIST. PATIENT IS ON RA. PATIENT IS ON A PULSE OX FOR JOSE GREATER THAN 3. PATIENT HAS PICC IN UPPER RIGHT ARM THAT FLUSHES WELL. PATIENT IS INCONTINENT. PATIENT HAS TEDHOSE AND HELL PROTECTOR ON LEFT LEG. PATIENTS RIGHT ANKLE IS ELEVATED ON A PILLOW AND HEEL IS FLOATED. PATIENT IS AAOX3 AND USES CALL LIGHT APPROPRIATELY. PATIENTS GAUZE DRESSING AROUND EXTERNAL FIXATOR ON RIGHT ANKLE IS C/D/I. MEPLX ON RIGHT ANKLE HAS OLD DRAINAGE.
--- NOTE | 2017-02-22 06:22 | NUR ---
PATIENTS MORNING MEDICATIONS GIVEN PER ORDER. PATIENT RATES PAIN AT A 4/10. PATIENT STATED "THE PAIN COMES AND GOES, ITS ANNOYING" PAITENT GIVEN PRN PAIN MEDICATION PER ORDER. PATIENTS ATTEND CHANGED AND JORGE CARE PERFORMED. PATIENT REPOSITIONED IN BED. PATIENT DENIES ANY NEEDS AT THIS TIME. CALL LIGHT IS WITHIN REACH.
--- NOTE | 2017-02-22 09:08 | NUR ---
ADMINISTERED MORNING MEDICATIONS, PATIENT SITTING UP IN BED. NO COMPLAINTS OF PAIN 0/10 ON PAIN SCALE. DISCUSSED POC FOR PATIENT. FULL BODY ASSESMENT DONE.
--- NOTE | 2017-02-22 10:27 | NUR ---
IMMERSION METALCLEANER PROVIDED BED BATH AND THEN PATIENT UP TO RECLINER. APPEARS COMFORTABLE. DENIES NEED FOR PAIN MEDICAITON AT THIS TIME. 0/10 ON PAIN SCALE, RESTING BACK WITH EYES CLOSED. LEG ELEVATED.
--- NOTE | 2017-02-22 12:11 | NUR ---
PATIENT AWAKE IN BED. AM CARE. EMPTY GARBAGE. CLEAN ROOM. FRESH ICE WATER. HAD TO HELP PT TO GET HER ON BEDSIDE COMMODE.
--- NOTE | 2017-02-22 19:41 | NUR ---
RECEIVED REPORT FROM DAY SHIFT RN. PATIENT IS RESTING IN ROOM WATCHING TV. PATENT DENIES ANY PAIN OR NEEDS AT THIS TIME. CALL LIGHT IN REACH.
--- NOTE | 2017-02-22 21:55 | NUR ---
PATIENT ASSEMSNET COMPLETD. PATIENTS EVENING MEDICATIONS GIVEN PER ORDER. PATENT RATES PAIN AT A 4/10. PATIENT GIVEN SCHEDULED MEDICATIONS PER ORDER. PATIENT DENIES THE NEED FOR PRN PAIN MEDICATION. PATIENT REPOSTIITONED IN BED. PATIENT HAS TEDHOSE AND HEEL PROTECTORS ON LEFT LEG. PATIENTS RIGHT LEG IS ELEVATED ON A PILLOW AND HEEL IS FLOATED. PATIENTS ATTEND IS DRY AT THIS TIME. PATIENT DENIES ANY NEEDS AT THIS TIME. CALL LIGHT IS WITHIN REACH.
--- NOTE | 2017-02-22 22:33 | NUR ---
PATIENTS ATTEDN CHANGED AND JORGE CARE PERFOMED. PATIENT HAD X1 MEDIUM BM. PATENT REPOSTIONED. PATIENT DENIES ANY NEEDS AT THIS TIME. CALL LIGHT IN REACH.
--- NOTE | 2017-02-22 22:53 | NUR ---
PATIENT AMBULATED TO THE RESTROOM A SBA. PATIENT IS STEADY ON HER FEET NO NAUSEA OR DIZZINESS REPORTED. PATIENT IS NOW BACK IN BED WITH SCDS ON. PATIENT DENIES ANY NEEDS AT THIS TIME.
--- NOTE | 2017-02-22 23:52 | NUR ---
PATIENT IS RESTING IN BED WITH EYES CLOSED. PULSE OX READINGS ARE WNL. CALL LIGHT IN REACH.
--- NOTE | 2017-02-23 01:58 | NUR ---
PATIENT IS RESTING IN BED WITH EYES CLOSED. PULSE OX READINGS ARE WNL. CALL LIGHT IN REACH.
--- NOTE | 2017-02-23 04:14 | NUR ---
PATIENT DENIES ANY PAIN AT THIS TIME. PATIENTS RIGHT ANKLE REMAINS ELEVATED AND HEEL IS FLOATED. PATIENT REPOSITIONED IN BED. PATIENT DENIES ANY FURTHER NEEDS. CALL LIGHT IN REACH.
--- NOTE | 2017-02-23 05:08 | NUR ---
PATIENT RESTED WELL THROUGHOUT THE SHIFT. PATIENT RECEIVED ONLY SCHEDULED PAIN MEDICATION AND DENIED THE NEED FOR PRN. PATIENT DID HAVE X1 BM. PATIENT IS ON A REG DIET AND TOLERATING IT WELL. PATIENT IS A 2P ERNESTO. PATIENT IS ON RA. PATIENT HAS PULSE OX IN PLACE FOR AN JOSE HIGHER THAN 3. PATIENT HAS PICC IN RIGHT ARM, GOOD BLOOD RETURN, AND HEP LOCKED. PATIENT IS INCONTINENT OF STOOL AND URINE. PATIENT HAS TEDHOSE AND HEEL PROTECTORS ON LEFT LEG. PATIENT HAS RIGHT ANKLE ELEVATED ON PILLOW AND HEEL IS FLOATED. ICE PACK IN PLACE. PATIENT IS AAOX3 AND USES CALL LIGHT APPROPRIATELY. PATIENT REPOSTIONED OFTEN.
--- NOTE | 2017-02-23 05:59 | NUR ---
PATIENTS VITALS TAKENAND RECORDED. PATIENT WAS INCONTINENT OF STOOL AND URINE. PATIENT HAD X1 SMALL BM. PATIENT DENIES ANY PAIN. PATIENT REPOSITIONED IN BED. PATIENT HAS TEDHOSE AND HEEL PROTECTOR ON LEFT LEG. RIGHTLEG IS ELEVATED ON PILLOW SO THAT HEEL IS FLOATED. PATIENTS MORNING MEDICATIONS GIVEN PER ORDER. CALL LIGHT IS WITHIN REACH.
--- NOTE | 2017-02-23 06:23 | NUR ---
PATIENTS X5 LAP SITES HAVE STERI STRIPS IN PLACE. WITH NO NEW DRAINAGE PRESENT. UMBILICAL WAS REINFORCED LAST NIGHT AFTER SURGERY AND THERE IS NO NEW DRAIANGE ON GAUZE.
--- NOTE | 2017-02-23 06:47 | NUR ---
PATIENT COMPLAINSOF7/10 PAIN IN HER RIGHT ANKLE. PATIENT GIVEN PRN PAIN MEDICAITON PER ORDER. PATIENT DENIES ANY FURTHER NEEDS AT THIS TIME. CALL LIGHT IN REACH.
--- NOTE | 2017-02-23 09:23 | NUR ---
PATIENT SITTING UP IN BED EATING BREAKFAST. PAIN WELL CONTROLLED 3/10 ON PAIN SCALE. STRONG PEDAL PULSE TO HANK LE. SKIN WARM TO TOUCH. PROVIDED PATIENT WITH FRESH ICE WATER AND MORNING MEDICATIONS. LUNG SOUNDS CLEAR. BOWEL TONES ACTIVE. FULL BODY ASSESMENT DONE, NO NEW FINDINGS.
--- NOTE | 2017-02-23 10:52 | NUR ---
PT WAS SHOWERED AND THEN TRASNFERED TO THE CHAIR VIA ERNESTO LIFT AND IS NOT RESTING SAFELY WITH CALL LIGHT IN REACH
--- NOTE | 2017-02-23 11:45 | NUR ---
CHANGED MEPILEX PAD TO FOOT AND LOOSELY WRAPPED GAUZE AROUND PIN SITES. NO S/S OF INFECTION. FOOT WARM TO TOUCH. GOOD PEDAL PULSE. HEEL ELEVATED ON PILLOW. ADMINISTERED 1 TAB NORCO.
--- NOTE | 2017-02-23 14:48 | NUR ---
PATIENT RESTING IN BED. NO REQUESTS AT THIS TIME.
--- NOTE | 2017-02-23 18:30 | NUR ---
PATIENT REPOSITIONED IN BED, LEG ELEVATED ON PILLOW. ADMINISTERED 5MG TAB OF NORCO. DRESSING GAUZE C/D/I. CALL LIGHT WITHIN REACH.
--- NOTE | 2017-02-23 19:48 | NUR ---
RECEIVED REPORT FROM DAY SHIFT RN. PATIENT IS RESTING IN BED WATCHING TV. PATIENT DENIES ANY PAIN AT THIS TIME. PATIENT DENIES ANY NEEDS AT THIS TIME. CALL LIGHT IN REACH.
--- NOTE | 2017-02-23 20:22 | NUR ---
PATIENTS ATTEDN CHANGED AND JORGE CARE PERFORMED. PATIENT DENIES ANY FURTHER NEEDS. CALL LIGHT IS WITHIN REACH.
--- NOTE | 2017-02-23 22:19 | NUR ---
PATIENT ASSESMENT COMPLETED. PATIENTS EVENING MEDICAITONS GIVEN PER ORDER. PATIENT RATES PAIN IN HER RIGHT ANKLE AT A 4/10. PATIENT GIVEN SCHEDULED PAIN MEDICATION PER ORDER. PATIENT DENIES THE NEED FOR FURTHER PAIN MEDICATION AT THIS TIME. PATIENT REPOSITIONED IN BED. PATIENTS RIGHT ANKLE IS ELEVATED ON A PILLOW AND HEEL IS FLOATED. PATIENT HAS TEDHOSE ON LEFT LEG. PATIENTS PICC IN RIGHT UPPER ARM HAS GOOD BLOOD RETURN, FLUSHES WELL, HEPLOCKED. PATIENT DENIES ANY FURTHER NEEDS AT THIS TIME. CALL LIGHT IS WITHIN REACH.
--- NOTE | 2017-02-24 00:30 | NUR ---
PATIENT IS RESTING IN BED WITH EYES CLOSED. PATIENTS PULSE OX READINGS ARE WNL. PATIENTS RIGHT LEG REMAINS ELEVATED ON A PILLOW AND HEEL IS FLOATED. CALL LIGHT IS WITHIN REACH.
--- NOTE | 2017-02-24 02:49 | NUR ---
PATIENT RESTING IN BED WITH EYES CLOSED. NONLABORED BREATHING. RR 14. CALL LIGHT WITHIN REACH.
--- NOTE | 2017-02-24 04:02 | NUR ---
JORGE CARE PERFROMED. PATIENT RESTING IN BED. DENIES ANY PAIN. CALL LIGHT WITHIN REACH. NO REQUEST AT THIS TIME.
--- NOTE | 2017-02-24 05:04 | NUR ---
PATIENT RESTED WELL THROUGHOUT THE SHIFT. PATIENT IS A 2P ERNESTO TRANSFER. PATIENT RECEIVED SCHEDULED PAIN MEDICATION, AND NO PRN PAIN MEDICATION. PATIENT IS ON RA. PATIENT IS A PULSE OX FOR AN JOSE GREATER THAN 3. PATIENT HAS A PICC LINE ON HER RIGHT UPPER ARM THAT HAS GOOD BLOOD RETURN AND FLUSHES WELL, AND IS HEP LOCKED WHEN NOT IN USE. PATIENT IS INCONTINENT OF URINE AND STOOL. PATIENT HAS TEDHOSE AND HEEL PROTECTOR ON LEFT LEG. PATIENTS RIGHT ANKLE HAS AN EXTERNAL FIXATOR AND IS ELEVATED ON A PILLOW WITH HEEL FLOATED. PATIENT IS AAO X3 AND USES CALL LIGHT APPROPRIATELY.
--- NOTE | 2017-02-24 06:26 | NUR ---
PATIENTS VITALS TAKEN AND RECORDED. PATIENTS MORNING MEDCIATIONS GIVEN PER ORDER. PATIENT DENIES ANY PAIN AT THIS TIME. PATIENT REPOSTIIONED IN BED. PATIENT CONTINUES TO HAVE TEDHOSE AND HEEL PROTECTOR ON LEFT LEG. RIGHT ANKLE IS ELEVATED ON PILLOW AND HEEL IS FLOATED. PATIENT DENIES ANY NEEDS AT THIS TIME. CALL LIGHT IS WITHIN REACH.
--- NOTE | 2017-02-24 11:06 | NUR ---
patient has been very confused today.
--- NOTE | 2017-02-24 11:46 | NUR ---
CALLED DR. ESPITIA REPORTED NEW ONSET CONFUSION THAT STARTED LATE LAST EVENING. PATIENT KEEPS TALKING ABOUT SEEING HER GRANDKIDS IN HER ROOM. VS STABLE. GOOD URINE OUTPUT. NEW ORDERS TO DC OXYCODONE AND CHANGE NORCO TO Q4HRS PRN FOR PAIN. LABS TO BE DRAWN CBC, CMP, COLLECT UA.
--- NOTE | 2017-02-24 12:00 | NUR ---
REPOSITIONED PATIENT IN BED, REPOSITIONING PILLOW UNDER LEG FLOATING HEEL. TOLERATED MOVEMENT WELL. PATIENT DENIES PAIN, STATES " THE LEG IS FEELING GOOD TODAY". GAUZE IN TACT. STRONG PEDAL PULSE, WARM TO TOUCH.
--- NOTE | 2017-02-24 16:43 | NUR ---
NOTIFIED DR. ESPITIA OF LAB RESULTS. DISCUSSED +2 BACTERIA FOUND IN UA, NO WBC. NO NEW ORDERS. NOTED TO DR. ESPITIA THAT BETWEEN LABIA APEARED EXCORIATED, AND PATIENT APPEARED UNCOMFORTBLE. NO NEW ORDERS AT THIS TIME, DR. ESPITIA WILL ADDRESS TOMORROW.
--- NOTE | 2017-02-24 17:35 | NUR ---
IV ANTIBIOTICS INFUSING. PATIENT WATCHING TELEVISION. ANSWERING QUESTIONS APROPRIATLEY, DENIES PAIN AT THIS TIME OR NEEDING PAIN MEDICAITON. APPEARS CALM AND PLEASANT. PROVIDED ICE WATER.
--- NOTE | 2017-02-24 18:03 | NUR ---
PATIENT HAD INCREASE COMPLAINTS FEELING TIRED, NOTED INCREASED CONFUSION. DR. ESPITIA NOTIFIED, LABS AND UA COLLECTED: RESULTS INSIGNIFICANT. CHANGES TO PAIN REGIME, OXYCODONE DC'D AND NORCO NOW Q4HRS PRN. DENIES PAIN, OR NEED FOR PAIN MEDICAITON THROUGHUT DAY. GAUZE IN PLACE, DRY AND INTACT. STRONG PEDAL PULSE HEEL ELEVATED. REPOSITIONED IN BED, AND WORKED WITH PHYSICAL THERAPY. DR. ESPITIA AWARE JORGE AREA EXCORIATED, PROVIDING JORGE CARE WITH BARRIER WIPES. NO NOTED ODOR. CLEAR YELLOW URINE. INCONT.
--- NOTE | 2017-02-24 19:00 | NUR ---
BEDSIDE REPORT RECEIVED FROM OFFGOING NURSE. PT LYING IN BED WATCHING TV. R FOOT REPOSITIONED ON PILLOW. PT DENIES NEEDS AT THIS TIME. CALL LIGHT WITHIN REACH.
--- NOTE | 2017-02-24 22:30 | NUR ---
PT ASSESSMENT COMPLETED. PT RATES PAIN 4/10, SCHEDULED NORCO ADMINISTERED. GAUZE REMAINS IN PLACE AROUND HARDWARE COVERING LLE. LLE ELEVATED ON PILLOW. CHAITANYA CAMERON PRESENT TO RLE. PT DENIES OTHER NEEDS AT THIS TIME. CALL LIGHT WITHIN REACH.
--- NOTE | 2017-02-25 00:45 | NUR ---
PT RESTING WITH EYES CLOSED. REPIRATIONS EVEN AND UNLABORED. PT APPEARS TO BE SLEEPING. PT MUMBLING SLIGHTLY WITH EYES CLOSED. DOES NOT WAKE TO DISPATCHER BUS AND TROLLEY ENTERING THE ROOM. CALL LIGHT WITHIN REACH.
--- NOTE | 2017-02-25 02:18 | NUR ---
PT'S ATTENDS CHANGED, PT REPOSITIONED. TOLERATED WELL. PT RATES PAIN 3/10. PT DENIES NEEDS. CALL LIGHT WITHIN REACH.
--- NOTE | 2017-02-25 04:35 | NUR ---
PT RESTED OFF AND ON THROUGHOUT THE SHIFT. REMAINS CONFUSED. NORCO X 1 SCHEDULED. PAIN WELL CONTROLLED. GAUZE, MEPILEX, EXTERNAL FIXATOR PRESENT TO RLE. SLIGHT SANGUINOUS SHADOWING TO GAUZE. KEEP HEEL ELEVATED. REPOSITION. NO EXCORIATION NOTED TO JORGE AREA. REDNESS NOTED UNDER BILATERAL BREASTS. INCONTINENT OF URINE, ATTENDS IN PLACE. 2 PERSON ERNESTO TRANSFER.
--- NOTE | 2017-02-25 07:22 | NUR ---
REPORT RECIEVED FROM TRISHA ROLAND. PT ASLEEP IN BED AFTER BEING UP RESTLESS MOST OF NIGHT.
--- NOTE | 2017-02-25 08:50 | NUR ---
ASSESSMENT DONE. PT DROWSY BUT ABLE TO ANSWER QUESTIONS AND TAKE PILLS ONE AT A TIME WITH WATER. NO DIFFICULTY THERE. LEG ELEVATED ON PILLOW. CRADLE ELEVATING BLANKETS OFF EXT. FIXATOR. PT DENIES CONCERNS.
--- NOTE | 2017-02-25 10:13 | NUR ---
PT SLEEPING UNTIL AWOKEN TO FLUSH PICC. PT DENIES CONCERNS AND IS STILL DROWSY.
--- NOTE | 2017-02-25 12:05 | NUR ---
PT GIVEN BED BATH AND HOYERED TO CHAIR FOR LUNCH. PT TOLERATED WELL AND REAR LOOKED GOOD OTHER THAN SMALL SCRATCH ON UPPER LEFT BUTTOCK.
--- NOTE | 2017-02-25 13:30 | NUR ---
GIVEN AFTERNOON MEDS. PT ASLEEP IN CHAIR. DID NOT EAT ANY OF LUNCH, STATES THAT SHE IS NOT HUNGRY. STATES HER PAIN IS LOW RIGHT NOW.
--- NOTE | 2017-02-25 15:00 | NUR ---
HOYERED PT BACK TO BED. CHANGED DEPENDS. PT TOLERATED WELL. EXT FIXATOR HAD A SMALL AMT OF DRAINAGE OUT OF LOWER PIN SITE. CLEANED UP.
--- NOTE | 2017-02-25 19:05 | NUR ---
BEDSIDE REPORT RECEIVED FROM OFFGOING RN. PT RESTING IN BED WITH EYES CLOSED.
--- NOTE | 2017-02-25 22:20 | NUR ---
PT ASSESSMENT COMPLETE. PT RATES PAIN 4/10 TO RLE. SCHEDULED NORCO ADMINISTERED. RLE EXTREMITIE ELEVATED ON PILLOW. GAUZE AND MEPILEX REMAIN IN PLACE. SM AMOUNT OF DRIED SANGUINOUS DRAINAGE PRESENT TO INFERIOR PIN SITE. PT DROWSY THROUGHOUT ASSESSMENT. PT'S ATTENDS CHANGED, AND PT REPOSITIONED. TOLERATED WELL. PT DENIES FURTHER NEEDS. CALL LIGHT WITHIN REACH.
--- NOTE | 2017-02-26 00:30 | NUR ---
PT RESTING IN BED WITH EYES CLOSED. RESPIRATIONS EVEN AND UNLABORED. PT APPEARS TO BE SLEEPING. CALL LIGHT WITHIN REACH.
--- NOTE | 2017-02-26 03:30 | NUR ---
PT ATTENDS CHANGED, REPOSITIONED IN BED. PROPPED WITH PILLOWS. PT REMAINS DROWSY, WAKES EASILY. ANSWERS QUESTIONS APPROPRIATELY. PT DENIES PAIN. RLE PROPPED ON PILLOW. NO NEW DRAINAGE NOTED TO PIN SITES. GAUZE AND MEPILEX REMAIN IN PLACE. PT SIPS WATER. DENIES OTHER NEEDS. CALL LIGHT WITHIN REACH.
--- NOTE | 2017-02-26 04:38 | NUR ---
PT SLEPT THROUGH THE SHIFT. WAKES AND ANSWERS QUESTIONS APPROPRIATELY, QUICKLY FALLS BACK TO SLEEP. NORCO X 1 SCHEDULED. NO NEW DRAINAGE TO PIN SITES ON RLE, GAUZE AND MEPILEX DRY AND INTACT. RLE PROPPED ON PILLOW. ATTENDS IN PLACE DUE TO INCONTINENCE. 2 PERSON ERNESTO TRANSFER. PICC TO [facility], 1 LUMEN. SL.
--- NOTE | 2017-02-26 05:56 | NUR ---
PT REPOSITIONED, FLOATED WITH A PILLOW TO EACH HIP. PT DISORIENTED TO TIME, BELIEVES IT IS 1920. PT REMAINS DROWSY, WAKES EASILY, FALLS BACK TO SLEEP EASILY. DENIES PAIN. RLE ELEVATED ON PILLOW. PT DENIES NEEDS. CALL LIGHT WITHIN REACH.
--- NOTE | 2017-02-26 08:04 | NUR ---
REPORT RECEIVED FROM TRISHA ROLAND. PT ASLEEP. SLEPT MOST OF NIGHT.
--- NOTE | 2017-02-26 10:24 | NUR ---
PT ERNESTO OVER TO CHAIR. CHANGED PICC DRESSING WITHOUT DIFF. PT TOLERATED ALL WELL. LABELED AND CHARTED. HEP FLUSHED THIS MORNING.
--- NOTE | 2017-02-26 11:10 | NUR ---
PT CALLED FOR PAIN MEDICATION. STILL UP IN CHAIR. WOULD LIKE TO GO BACK TO BED AFTER LUNCH.
--- NOTE | 2017-02-26 12:27 | NUR ---
PT SITTING IN CHAIR, RN ADELA IN TO GIVE PAIN MEDS. PT SAID PAID AT 4-5. SHE TOLD ME SHE IS FEELING MUCH BETTER. SHE SMILED AND EVEN JOKED SOME WITH ME. I GAVE A BLESSING AND TOLD HER I WOULD RETURN. SHE SAID SHE WOULD LIKE THAT.
--- NOTE | 2017-02-26 12:48 | NUR ---
We hoyered her to the chair later this morning.
--- NOTE | 2017-02-26 13:34 | NUR ---
PT TRANSFERED BACK TO BED WITH THE ERNESTO. TOLERATED WELL. CHANGED DEPENDS.
--- NOTE | 2017-02-26 15:18 | NUR ---
PT APPEARS TO BE SLEEPING. RR 16
--- NOTE | 2017-02-26 16:20 | NUR ---
PT CALLED TO ASK FOR PAIN MED. RATES 10/22. "FEELS LIKE SOMETHING IS IN HER LEG"
--- NOTE | 2017-02-26 17:20 | NUR ---
CHANGED PT DEPENDS AND DRESSING ON RIGHT LEG. PT TOLERATED WELL. ADMINISTERED EVENING MEDS. PT ALERT AND ORIENTED, WATCHING TV AND EATING DINNER.
--- NOTE | 2017-02-26 17:21 | NUR ---
PT MUCH MORE ALERT TODAY. UP IN CHAIR FOR SEVERAL HOURS. CHANGED DEPENDS MULTIPLE TIMES. HAD BM ON BEDPAN THIS MORNING. CHANGED PICC AND LEG DRESSINGS. PT TOLERATED WELL. PAIN WELL CONTROLLED WITH PRN MED.
--- NOTE | 2017-02-26 18:42 | NUR ---
No bed bath today got a good one yesterday.
--- NOTE | 2017-02-26 19:33 | NUR ---
Bedside report recieved from day shift. Pt resting in bed with meal tray. Pt denies needs at this time. Call dasilva within reach.
--- NOTE | 2017-02-26 23:16 | NUR ---
ASSISTED PT WITH BEDPAN. PT WAS INCONT OF URINE AND CONTINENT OF STOOL. BOOSTED PT IN BED WITH ASSISTANCE. PT DENIES FURTHER NEEDS. CALL STINSON WITHIN REACH.
--- NOTE | 2017-02-27 03:26 | NUR ---
REPOSITIONED PT ON L SIDE WITH ASSIST. CHECKED FOR EPISODE OF INCONTINENCE, FOUND DRY. HYDRATION OFFERED. PT DENIES NEEDS AT THIS TIME. CALL STNISON WITHIN REACH.
--- NOTE | 2017-02-27 05:43 | NUR ---
PT HAD UNEVENTFUL NIGHT. SLEPT MOST OF NIGHT. PICC DRESSING CDI. PT INCONT OF URINE, BM IN BEDPAN. NO PRN PAIN MED NEEDED.
--- NOTE | 2017-02-27 06:21 | NUR ---
CHECKED PT FOR EPISODE ON INCONT, FOUND DRY. PT STATES SHE IS COMFORTABLE.
--- NOTE | 2017-02-27 07:31 | NUR ---
PT. IS SLEEPING IN BED. REPORT RECEIVED FROM TRISHA.
--- NOTE | 2017-02-27 09:35 | NUR ---
AWAKE IN BED, SET PATIENT UP FOR BREAKFAST, EMPTY GARBAGE, FRESH ICE WATER, PATIENT AGREED TO BED BATH AND TO GET UP IN CHAIR AFTER VITALS, CALL LIGHT IN REACH.
--- NOTE | 2017-02-27 09:56 | NUR ---
MORNING MEDICATIONS GIVEN AND MORNING ASSESSMENT DONE. PT. SITTING IN BED WATCHING TELEVISION. NO NEEDS AT THIS TIME.
--- NOTE | 2017-02-27 10:10 | NUR ---
PT. UP TO SHOWER CHAIR WITH ERNESTO.
--- NOTE | 2017-02-27 11:01 | NUR ---
PT. SITTING IN CHAIR WATCHING TV AFTER SHOWER. NO NEEDS AT THIS TIME.
--- NOTE | 2017-02-27 11:32 | NUR ---
NURSE ADELA/DOT OROZCOED PATIENT INTO SHOWER CHAIR. GAVE SHOWER. BACK TO CHAIR. WARM BLANKET. CALL LIGHT IN REACH.
--- NOTE | 2017-02-27 12:16 | NUR ---
PATIENT IN CHAIR. GAVE HER A BOOST. SET HER UP FOR LUNCH. FRESH ICE WATER.
--- NOTE | 2017-02-27 12:17 | NUR ---
PUT CHAITANYA HOSE,NON SKIDE SOCK AND HEAL PROTECTER BACK ON
--- NOTE | 2017-02-27 12:24 | NUR ---
PT SITTING IN CHAIR, WAITING FOR RESIDENTIAL CAREGIVER TO COME AND HELP WITH SHOWER. I COULD TELL SHE WAS WANTING THE SHOWER. DIDN'T STAY LONG. SHE MENTIONED THAT SHE SLEPT WELL LAST NIGHT. USUALLY DOES SLEEP WELL
--- NOTE | 2017-02-27 12:42 | NUR ---
PT. SITTING IN CHAIR. AFTERNOON MEDICATION GIVEN. NO NEEDS AT THIS TIME.
--- NOTE | 2017-02-27 13:49 | NUR ---
WENT INTO ROOM TO RETURN PT. TO BED PER HER REQUEST. PT. ON PHONE AND WILL RETURN LATER.
--- NOTE | 2017-02-27 14:01 | NUR ---
PT. TRANSFERED TO BED FROM CHAIR VIA ERNESTO. NEW GAUZE APPLIED TO WOUND ON RIGHT HERNANDEZ. PT. HAS NO NEEDS AT THIS TIME.
--- NOTE | 2017-02-27 14:56 | NUR ---
PATIENT UP IN BED. FRESH ICE WATER. WARM BLANKET. TOOK LUNCH TRAY. TOOK VITAILS.
--- NOTE | 2017-02-27 15:25 | NUR ---
PT. ASLEEP IN BED.
--- NOTE | 2017-02-27 16:20 | NUR ---
PT. SITTING IN BED WATCHING TV. PAIN MEDICATION GIVEN FOR 5/10 PAIN. EVENING MEDICATIONS ALSO ADMINISTERED. NO OTHER NEEDS AT THIS TIME.
--- NOTE | 2017-02-27 17:32 | NUR ---
PT. HAS BEEN RESTING IN BED AND CHAIR THROUGHOUT SHIFT. VITALS STABLE. NORCO GIVEN X1 FOR PAIN IN RIGHT LEG. PT. STATES THAT THE NORCO HELPS AND RELIEVES ALL OF HER PAIN. NO ACUTE CHANGES FROM BEGINNING OF SHIFT ASSESSMENT. INTENTIONAL ROUNDING DONE WITH ALL PATIENT'S NEEDS MET.
--- NOTE | 2017-02-27 18:55 | NUR ---
PATIENT AWAKE RESTING IN BED. AKI ONEILL AND I CHANGED AND CLEANED UP PATIENT.SHE ATE 50 % OF HER DINNER. PATIENT IS CONTENT AND STATED SHE DOES NOT NEED ANYTHING AT THIS TIME. HER CALL LIGHT IS IN REACH.
--- NOTE | 2017-02-27 19:19 | NUR ---
REPORT RECIEVED FROM DAY SHIFT. PT RESTING IN BED. NO C/O OF PAIN. PICC DRESSING INTACT. PT DENIES NEEDS AT THIS TIME. CALL STINSON WITHIN REACH.
--- NOTE | 2017-02-27 20:06 | NUR ---
PT RESTING IN BED. PAIN RATED 1/10 IN RLE. PT REFUSED TO BE REPOSITIONED AT THIS TIME. EDUCATED ON PT ON THE IMPORTANCE OF REPOSITIONING.
--- NOTE | 2017-02-27 23:00 | NUR ---
PT RESTING WATCHING TV. DENIES PAIN. PT STILL REFUSING TO BE REPOSITIONED. PT AFEBRILE AT THIS TIME. PT DENIES NEEDS. CALL STINSON WITHIN REACH.
--- NOTE | 2017-02-28 01:12 | NUR ---
PT INCONTINENT OF URINE. CHANGED BRIEF, JORGE CARE PERFORMED. REPOSITIONED PT ON L SIDE WITH ASSIST. HYDRATION OFFERED. PT DENIES NEEDS AT THIS TIME. CALL STINSON WITHIN REACH.
--- NOTE | 2017-02-28 03:06 | NUR ---
PT RESTING. CHECKED FOR EPISODE OF INCONTINENCE, FOUND DRY. REPOSITIONED PT-SEMI FOWLERS. PT DENIES NEEDS. CALL STINSON WITHIN REACH.
--- NOTE | 2017-02-28 04:15 | NUR ---
PT RESTING. BRIEF CHANGED FOR EPISODE OF URINE AND STOOL INCONTINENCE. REPOSITIONED ON R SIDE. PT DENIES NEEDS. CALL STINSON WITHIN REACH.
--- NOTE | 2017-02-28 05:35 | NUR ---
PT DID NOT SLEEP VERY WELL LAST NIGHT. DID NOT REQUIRE PRN PAIN MEDICATION. UNEVENTFUL NIGHT.
--- NOTE | 2017-02-28 08:09 | NUR ---
PATIENT DROWSY THIS MORNING, NOT VERY INTERESTED IN BREAKFAST. REPOSITONED IN BED, WILL REAPPROACH AGAIN. DISCUSSED PLAN TO GET UP IN RECLINER AND SHOWER, PATIENT DOES NOT SEEM INTERESTED AT THIS TIME.
--- NOTE | 2017-02-28 08:58 | NUR ---
PATIENT UP IN BED. GAVE HER A BOOST. SET HER UP FOR BREAKFAST. FRESH ICE WATER. EMPTY GARBAGE.
--- NOTE | 2017-02-28 12:05 | NUR ---
PT LAYING ALMOST FLAT IN BED, WATCHING TV AND EATING ICE CREAM. SHE SAID SHE WAS COMFORTABLE AND RELATIVELY PAIN FREE. ATTITUDE SEEMS TO IMPROVE EACH DAY. EXTENDED A BLESSING-PT THANKED ME.
--- NOTE | 2017-02-28 12:14 | NUR ---
PATIENT IN AWAKE IN BED. CHANGED AND CLEANED HER UP. TURNED PATIENT ON RIGHT SIDE. CALL LIGHT IS IN REACH.
--- NOTE | 2017-02-28 15:00 | NUR ---
DISCUSSED WITH PATIENT AND STAFF IMPORTANCE OF GETTING UP OUT OF BED, PATIENT VERBALIZED UNDERSTANDING AND AGREED TO POC. UP TO RECLINER WITH ERNESTO PHYSICAL THERAPY IN ROOM ASSISTING WITH TRANSFER.
--- NOTE | 2017-02-28 17:50 | NUR ---
NEW ORDER FOR PIN CARE, 1/2 SOLUTION OF PEROXIDE TO PIN SITES APPLIED WITH COTTON APPLICATOR BID. TELEPHONE ORDER PER DR. ESPITIA. PIN SITES APPEAR CRUSTED WITH DRIED BLOOD AND NOTED SOME REDNESS, NO WARMTH TO SURROUNDING AREAS, NO NEW DRAINAGE. STRONG PEDAL PULSE.
--- NOTE | 2017-02-28 19:10 | NUR ---
PATIENT HAD XL BOWEL MOVMENT SOFT PUDDING CONSISTENCY WHILE UP IN RECLINER. CLEANUP CARE 60+ MINUTES IN SHOWER CHAIR, 4 PERSON ASSIST. PATIENT APPEARED TO TOLERATE ACTIVITY WELL. HANDOFF TO ONCOMING NURSE, DISCUSSED DSG CHANGE AND PIN SITE CARE WHEN PATIENT BACK TO BED FROM SHOWER.
--- NOTE | 2017-02-28 19:50 | NUR ---
IN TO SEE PT, PT IN BED SLEEPING. AWAKENS EASILY TO VOICE. DENIES PAIN AT THIS TIME. WATER AT BESIDE. CALL LIGHT WITH IN REACH.
--- NOTE | 2017-02-28 21:00 | NUR ---
PIN CARE COMPLETE. MIPELEX APPLED TO SUTURES. PIN SITES REDDENED, OLD DRAINAGE NOTED. GUAZE APPLIED. PT ANKLE ELEVATED AND ICE APPLIED. PT DENIES PAIN AT THIS TIME. RESTING WHILE DRSG CHANGE DONE. WATER AT BEDSIDE. CALL LIGHT WITH IN REACH.
--- NOTE | 2017-02-28 22:48 | NUR ---
IN TO CHECK ON PT, PT APPEARS TO BE SLEEPING. NO APPARENT DISTRESS. WATER AT BEDSIDE. CALL LIGHT WITH IN REACH.
--- NOTE | 2017-03-01 00:23 | NUR ---
PT CALLED C/O OF INCREASED PAIN IN R ANKLE. PT AWAKE AND ALERT. RATES PAIN AN 8/10. PRN PAIN MEDICATION GIVEN. NO FURTHER NEEDS AT THIS TIME. CALL LIGHT WITH IN REACH.
--- NOTE | 2017-03-01 02:04 | NUR ---
IN TO CHECK ON PT, PT APPEARS TO BE SLEEPING. NO APPARENT DISTRESS NOTED. RR EVEN AND UNLABORED. CALL LIGHT WITH IN REACH.
--- NOTE | 2017-03-01 04:06 | NUR ---
PT HAS RESTED WELL THROUGH OUT THE SHIFT. PRN MEDICATION GIVEN FOR PAIN. PIN CARE AND DRSG APPLIED. PT IS PLEASANT AND ORIENTED.
--- NOTE | 2017-03-01 10:48 | NUR ---
PATIENT AWAKE IN BED. ORDERED HER BREAKFAST. SET HER UP WITH BREAKFAST. CLEANED ROOM. CHANGED HER ATTEND. PUT HER IN HER CHAIR UPDATED FOUZIA COSTELLO
--- NOTE | 2017-03-01 13:00 | NUR ---
PATIENT RESTING IN RECLINER, ATE LUNCH. REQUESTING TO GO BACK TO BED, PATIENT STATES " I AM READY TO BED" PATIENT WORKED WITH PHYSICAL THERAPY. 2 PERSON ASSIST WITH ERNESTO BACK TO BED. HEEL FLOATED WITH PILLOW.
--- NOTE | 2017-03-01 16:08 | NUR ---
PATIENT UP TO RECLINER THIS MORNING, LUNG SOUNDS CLEAR THROUGHOUT. REPORTS PAIN FEELS TOLERABLE. EATING BREAKFAST. VS STABLE. VOIDING WELL, ATTENDS SATURATED. SUTURES TO LOWER LEG C/D/I, CLEANED PINSITES WITH PEROXIDE.
--- NOTE | 2017-03-01 19:30 | NUR ---
IN TO SEE PT, PT AWAKE WATCHING TV. PT PLEASANT MENTIONS SHE HAS A GOOD DAY. RATES PAIN A 2/10. SURGICAL SITE OPEN TO AIR. NO DRAINAGE NOTED. ERYTHEMA AROUND THE SUTURE SITE, WARM TO TOUCH. ICE APPLIED. WILL CONTINUE TO MONITOR. NO FURTHER NEEDS AT THIS TIME. CALL LIGHT WITH IN REACH.
--- NOTE | 2017-03-01 23:12 | NUR ---
IN TO CHECK ON PT, PT AWAKE WATCHING TV. R LEG REPOSITIONED AND ELEVATED FOR COMFORT. NO FURTHER NEEDS AT THIS TIME. CALL LIGHT WITH IN REACH.
--- NOTE | 2017-03-02 02:18 | NUR ---
IN TO CHECK ON PT, PT APPEARS TO BE SLEEPING. NO APPARENT DISTRESS NOTED. RLE ELEVATED ON PILLOW. WATER AT BEDSIDE. CALL LIGHT IN PLACE.
--- NOTE | 2017-03-02 04:28 | NUR ---
PT SLEEPING INTERMITTENTLY THROUGH OUT THE SHIFT. AAO X3. MINIMAL PAIN. INCONT OF URINE. SURGICAL SITE OPEN TO AIR, NO DRAINAGE PRESENT. PER DR. ESPITIA PLANNING FOR ORIF ON SATURDAY.
--- NOTE | 2017-03-02 08:00 | NUR ---
PT AWAKE IN BED WATCHING TV, ALERT AND ORIENTED. DENIES PAIN OR OTHER CONCERNS AT THIS TIME. BREAKFAST SET UP FOR PT, EATING INDEPENDENTLY. AM MEDS ADMINISTERED. RIGHT LOWER EXTREMITY EXTERNAL FIXATOR DEVICE IN PLACE WNL. PIN SITES CDI, NO DRAINAGE OR REDNESS NOTED. INCISION SITE WELL APPROXIMATED, SUTURES INTACT, NO DRAINAGE, REDNESS, OR INFLAMMATION. PICC FLUSHES WELL, GOOD BLOOD RETURN, DRESSING CDI. CALL LIGHT WITHIN REACH.
--- NOTE | 2017-03-02 11:24 | NUR ---
PT AWAKE IN BED. AIDES ASSISTING PT WITH BED CHANGE. PT INCONTINENT OF URINE. ASSISTED TO POSITION OF COMFORT. CALL LIGHT WITHIN REACH.
--- NOTE | 2017-03-02 14:17 | NUR ---
PT RESTING IN BED EYES CLOSED, RESP EVEN AND UNLABORED. AWOKE EASILY TO VOICE. MEDICATED WITH SCHEDULED MED. DENIES PAIN OR OTHER CONCERNS AT THIS TIME. ATE ONLY A COUPLE BITES OF LUNCH STATES "I'M NOT VERY HUNGRY." CALL LIGHT WITHIN REACH.
--- NOTE | 2017-03-02 16:49 | NUR ---
MEDICATED WITH PRN NORCO PER REQUEST FOR 5/10 RIGHT FOOT PAIN. SHEDULED MEDS ADMINISTERED. DENIES FURTHER NEEDS OR CONCERNS AT THIS TIME. CALL LIGHT WITHIN REACH.
--- NOTE | 2017-03-02 19:15 | NUR ---
REPORT RECIEVED. PT AWAKE, WATCHING TV. PT DENIES PAIN AT THIS TIME. NO FURTHER NEEDS AT THIS TIME. CALL LIGHT WITH IN REACH.
--- NOTE | 2017-03-02 22:21 | NUR ---
IN TO CHECK ON PT, APPEARS TO BE SLEEPING. NO APPARENT DISTRESS NOTED. CALL LIGHT WITH IN REACH.
--- NOTE | 2017-03-03 01:43 | NUR ---
IN TO CHECK ON PT, PT APPEARS TO BE SLEEPING. NO APPARENT DISTRESS NOTED. CALL LIGHT WITH IN REACH.
--- NOTE | 2017-03-03 04:27 | NUR ---
PT HAS HAD UNEVENTFUL SHIFT, SLEPT WELL. AAO X3. NO PAIN NOTED DURING SHIFT. INCONTINENT OF URINE AND STOOL. SURGICAL AND PIN SITES OPEN TO AIR. NO DRAINAGE OR REDNESS NOTED. PLAN FOR ORIF ON 03/04/17.
--- NOTE | 2017-03-03 06:05 | NUR ---
IN TO CHECK ON PT, PT SLEEPING. AWAKENS EASILY TO VOICE. ATTENDS CHANGED. PT C/O PAIN IN R LE. PRN MEDICATION GIVEN FOR 4/10 PAIN. GOWN CHANGED. WARM BLANKETS GIVEN. NO FURTHER NEEDS AT THIS TIME. CALL LIGHT WITH IN REACH.
--- NOTE | 2017-03-03 08:15 | NUR ---
PT AWAKE IN BED EATING BREAKFAST INDEPENDENTLY. DENIES PAIN, NAUSEA, OR OTHER CONCERNS. ALERT AND ORIENTED. EXTERNAL FIXATOR DEVICE WNL, PIN SITES INTACT, CLEAN AND DRY, WITHOUT REDNESS OR INFLAMMATION. SUTURE SITE WELL APPROXIMATED, NO REDNESS OR DRAINAGE NOTED. CALL LIGHT WITHIN REACH, CALLS APPROPRIATELY.
--- NOTE | 2017-03-03 10:26 | NUR ---
PT ATTENDS CHANGED, REPOSITIONED. RIGHT LEG ELEVATED ON PILLOWS. DENIES NEEDS OR CONCERNS. CALL LIGHT WITHIN REACH.
--- NOTE | 2017-03-03 13:26 | NUR ---
PT RESTING IN BED, EYES CLOSED, RESP EVEN AND UNLABORED.
--- NOTE | 2017-03-03 16:26 | NUR ---
ATTENDS CHANGED, PT REPOSITIONED. WATCHING TV. CALL LIGHT WITHIN REACH. DENIES PAIN OR OTHER CONCERNS.
--- NOTE | 2017-03-03 20:03 | NUR ---
IN TO SEE PT, PT SLEEPING. AWAKENS EAISLY TO VOICE. PT RATES PAIN A 4/10. R LE REPOSITIONED AND ICE APPLED. SURGICAL SITE INTACT. NO FURTHER NEEDS AT THIS TIME. CALL LIGHT WITH IN REACH.
--- NOTE | 2017-03-04 00:35 | NUR ---
IN TO CHECK ON PT, PT SLEEPING. NO APPARENT DISTRESS NOTED. PT NPO, ALL LIQUIDS REMOVED. CALL LIGHT WITH IN REACH.
--- NOTE | 2017-03-04 04:13 | NUR ---
PT HAS HAD AN UNEVENTFUL SHIFT, SLEPT WELL. AAO X3. PAIN MEDICATION GIVEN X1. INCONTIENENT OF URINE. SURGICAL AND PIN SITE OPEN TO AIR. PREPROCEDURE CHECK LIST STARTED, LR ON STRAIGHT TUBING IN ROOM, WIPE DOWN COMPLETE AND CONSENT FORM SIGNED. PLAN FOR ORIF TODAY.
--- NOTE | 2017-03-04 07:29 | NUR ---
PT RESTING IN BED, EYES CLOSED, RESP EVEN AND UNLABORED. LR HANGING WITH STRAIGHT TUBING AT BEDSIDE. CONSENT SIGNED, PRE-PROCEDURE CHECKLIST COMPLETED. CHLORHEXADINE WIPES DONE.
--- NOTE | 2017-03-04 08:40 | NUR ---
PT TRANSFERRED TO OR VIA HOSPITAL BED. PICC LINE FLUSHED, GOOD BLOOD RETURN, LR STARTED.
--- NOTE | 2017-03-04 10:20 | NUR ---
03/04/17 1020 Yara Andrade PT PICC CDI
--- NOTE | 2017-03-04 11:10 | NUR ---
PT ARRIVED TO FLOOR VIA HOSPITAL BED FROM PACU, RECEIVED REPORT FROM MARIANNE RICO. PT AWAKE, ALERT AND ORIENTED. DENIES PAIN, NAUSEA, OR OTHER CONCERNS AT THIS TIME. DRESSING TO RIGHT LOWER LEG CDI, BOOT IN PLACE, ELEVATED ON PILLOWS. VSS, SATTING 100% ON 2LNC, WILL WEAN OFF O2. PT GIVEN ICE WATER, CRACKERS, AND PUDDING, ALENA WELL. PT HEP LOCKED PER DR. ESPITIA, PICC FLUSHES WELL WITH GOOD BLOOD RETURN. CALL LIGHT WITHIN REACH.
--- NOTE | 2017-03-04 12:35 | NUR ---
PT AWAKE IN BED WATCHING TV. MEDICATED WITH NORCO FOR C/O RIGHT ANKLE PAIN. EATING ROAST BEEF SANDWICH FOR LUNCH, ALENA WELL, NO NAUSEA OR VOMITING. WEANED TO ROOM AIR, SATTING 93%. CALL LIGHT WITHIN REACH.
--- NOTE | 2017-03-04 13:03 | OR ---
[facility] [address], [place] [address] Signed DATE OF SERVICE: 03/04/2017 PREOPERATIVE DIAGNOSIS: Grade 3 RT ankle fracture dislocation, status post ex-fix. POSTOPERATIVE DIAGNOSIS: Grade 3 RT ankle fracture dislocation, status post ex-fix. PROCEDURE PERFORMED: Removal of external fixator. Open reduction and internal fixation of RT bimalleolar ankle fracture. ANESTHESIA: Spinal. BLOOD LOSS: Minimal. SURGEON: Hossein Caldera MD. FRONT DESK ASSISTANT: JAI Santos TOURNIQUET TIME: 32 minutes. IMPLANTS: 8-0 one-third tubular plate with screws and a 1.6 mm K-wire medially. BRIEF HISTORY: Valentina is an 86-year-old female who 3 weeks ago suffered a significant fracture dislocation of her RT ankle. She had gross contamination of the wound an d I had placed her in the hospital on IV antibiotics after reducing the ankle, washing it out and placing an external fixator. Plan was to return today for open reduction and internal fixation if her wound healed. Her wound healed quite nicely actually. Risks, benefits, and alternatives were discussed with her and she elected to proceed. DESCRIPTION OF PROCEDURE: Once consent was obtained, she was taken to the operating room. After adequate anesthesia, she was placed on the operating room table. All downside pressure points well padded. The leg was prepped and draped in a standard sterile fashion. The external fixator was removed and the Schanz pins were removed. The leg was then exsanguinated using Esmarch bandage. Tourniquet was inflated to 250 mmHg. Initially, this was increased at about the 20 minute fatemeh to 275, due to continued bleeding through the tourniquet. The lateral side was approached through a 3-inch incision, was carried through skin and subcutaneous tissue. The periosteum was elevated longitudinally and Electronically Signed By: HOSSEIN CALDERA MD 03/04/17 1303 PATIENT NAME: MARIETTA BROOKS OPERATIVE REPORT DATE OF : 34 PHYSICIAN: HOSSEIN CALDERA MD REPORT #: [id number] REPORT IS CONFIDENTIAL AND NOT TO BE RELEASED WITHOUT AUTHORIZATION [facility] [address], [place] [address] Signed taken through the anterior and posterior corners. The fracture itself was showing good fibrous healing and I left it alone. We then fashioned the 8-0 plate and centered it on the fracture and the screw was placed proximally to hold it in position. This was checked using image intensifier and found to be satisfactory aligned. Remaining screws were placed. Three locking screws were placed distal. Due to poor bone quality, we did place one cancellous screw as well. This shifted the lateral malleolus over reducing the ankle mortise. The wound was copiously irrigated with antibiotic solution, closed with 2-0 Monocryl and mayito. The attention was then turned to the medial side. Due to the large laceration, I moved my incision 2 cm distal to the laceration. I made an oblique incision, carried it through the skin, subcutaneous tissue, down to the distal extent of the malleolus. Medial malleolus fracture was quite small and this was reduced using a dental pick and held with a 1.6 K-wire. I did not think I can get a screw in it, so we left it alone with the pin which was bent and driven in to hold the bone fragment. The wound was copiously irrigated with antibiotic solution again and closed with 2-0 Monocryl and mayito. Both wounds were dressed with Mepilex Ag dressing as were the pin holes. ABDs were placed and Flex wrap. She was placed in a fracture boot and taken to recovery room in satisfactory condition. All sponge, needle, and instrument counts were correct. Hossein Caldera MD BA/Nadjal /[id number] Electronically Signed By: HOSSEIN CALDERA MD 03/04/17 1303 PATIENT NAME: MARIETTA BROOKS OPERATIVE REPORT DATE OF : 34 PHYSICIAN: HOSSEIN CALDERA MD REPORT #: [id number] REPORT IS CONFIDENTIAL AND NOT TO BE RELEASED WITHOUT AUTHORIZATION
--- NOTE | 2017-03-04 13:45 | NUR ---
PT RESTING IN BED, EYES CLOSED, RESP EVEN AND UNLABORED.
--- NOTE | 2017-03-04 17:04 | NUR ---
PT AWAKE IN BED EATING DINNER. DENIES NEEDS OR CONCERNS AT THIS TIME. CALL LIGHT WITHIN REACH.
--- NOTE | 2017-03-04 18:45 | NUR ---
PT INCONTINENT OF URINE AND STOOL. TURNED WELL IN BED. LINENS AND ATTEND CHANGED. PT PLACED IN POSITION OF COMFORT. CALL LIGHT WITHIN REACH.
--- NOTE | 2017-03-04 21:40 | NUR ---
PT AWAKE, LAYING IN BED. PT DENIES PAIN AND NAUSEA AT THIS TIME. RIGHT LEG HAS BRACE IN PLACE. CHANGED PT'S DEPENDS, INCONTINENT OF URINE. PICC DRAWS BLOOD BACK AND FLUSHES WELL, DRESSING IS INTACT. PT ALERT AND ORIENTED X4 AT THIS TIME. VERY PLEASENT. USES CALL LIGHT APPROPRIATLEY. REPOSITIONED PT IN BED, PILLOW UNDER RIGHT LEG. PT HAS NO FURTHER NEEDS AT THIS TIME. CALL LIGHT IN REACH.
--- NOTE | 2017-03-05 00:04 | NUR ---
PT APPEARS TO BE SLEEPING. RR WNL AND UNLABORED.
--- NOTE | 2017-03-05 01:40 | NUR ---
RE-POSITIONED PT IN BED. PT COMPLAINED OF 5/10 PAIN IN HER RIGHT LEG, STATED "ITS JUST STARTING TO THROB," GAVE NORCO FOR PAIN. PT HAS NO FURTHER NEEDS. CALL LIGHT IN REACH.
--- NOTE | 2017-03-05 01:45 | NUR ---
PATIENT'S ATTENDS CHECKED AND DRY. NURSE IS AWARE.
--- NOTE | 2017-03-05 03:43 | NUR ---
PT APPEARS TO BE SLEEPING. RR WNL AND UNLABORED. LIGHTS AND TV OFF IN ROOM.
--- NOTE | 2017-03-05 05:11 | NUR ---
PT HAD UNEVENTFUL NIGHT, SLEPT MAJORITY OF SHIFT. PAIN WELL CONTROLLED WITH PO PAIN MEDICATIONS. PT ALERT AND ORIENTED, USES CALL LIGHT APPROPRIATLY. PICC LINE DRAWS BLOOD AND FLUSHES WELL, DRESSING DUE TO BE CHANGED TODAY (03/05/17). PT INCONTINENT, DEPENDS IN PLACE. PT HAS NOT BEEN UP THIS SHIFT, BUT YESTERDAY'S DAYSHIFT REPORTS PT IS A MAX/ERNESTO ASSIST. PT HAD NO OTHER COMPLAINTS OVERNIGHT.
--- NOTE | 2017-03-05 05:49 | NUR ---
PT INCONTINENT OF STOOL AND URINE. CLEANED PT UP, NEW DEPENDS IN PLACE. RE-POSITIONED PT. PT COMPLAINED OF 7/10 PAIN, GAVE NORCO FOR PAIN. PT REPORTS THE NORCO HAS "BEEN DOING A GOOD JOB," REGARDING HER PAIN.
--- NOTE | 2017-03-05 07:30 | NUR ---
REPORT RECIEVED FROM TRISHA DIA. PT SLEPT WELL LAST NIGHT AND IS AWAKE NOW. DENIES PAIN. HAD BM LAST NIGHT.
--- NOTE | 2017-03-05 08:19 | NUR ---
PT DONE EATING BREAKFAST. TOOK PILLS WITHOUT DIFF. PICC FLUSHED WITH HEP. WILL CHANGE DRESSING LATER TODAY. PT AWARE.
--- NOTE | 2017-03-05 10:36 | NUR ---
PT IS SITTING UP IN BED WATCHING TV. PT ASKED FOR PAIN MEDICINE, WILL NOTIFY NURSE
--- NOTE | 2017-03-05 11:10 | NUR ---
PT STATES HER LEG IS STARTING TO HURT. TRISHA CHRIS ADMINISTERED PRN OXY. ADVISED HER IT WILL TAKE A LITTLE WHILE TO KICK IN .
--- NOTE | 2017-03-05 13:43 | NUR ---
ASSISTED TRISHA CHRIS WITH CHANGING OF PICC LINE DRESSING. PT TOLERATED WELL AND SKIN AND SITE ASSESSMENT APPEARED WNL WITH NO SKIN BREAKDOWN OR REDNESS.
--- NOTE | 2017-03-05 14:26 | NUR ---
PT IS LYING IN BED WATCHING TV. PT DID NOT NEED ANYTHING ELSE
--- NOTE | 2017-03-05 14:51 | NUR ---
DEPEND CHANGED, PAIN MEDICATION ADMINISTERED. PATIENT HAS NO NEEDS AT THIS TIME.
--- NOTE | 2017-03-05 14:52 | NUR ---
CHANGED PT DEPENDS AND PARTIAL BEDDING CHANGE.
--- NOTE | 2017-03-05 18:45 | NUR ---
PT IS SITTING UP IN BED WATCHING TV. PT ASKED FOR PAIN MEDS, WILL NOTIFY NURSE
--- NOTE | 2017-03-05 18:57 | NUR ---
CHANGED PT DEPENDS AND BEDDING UNDERNEATH. PT ROLLED AND TOLERATED WELL. PLACED PILLOW UNDER RIGHT HIP AFTER REMOVEING IT FROM LEFT SIDE. PT ASKED FOR PRN PAIN PILL.
--- NOTE | 2017-03-05 19:56 | NUR ---
PT LAYING IN BED, WATCHING TV. DENIES PAIN AT THIS TIME, STATES "I HAVE NONE RIGHT NOW, I JUST TOOK SOME PAIN MEDICINE." RATES PAIN AT 0/10. DRESSING APPEARS TO BE CLEAN DRY AND INTACT, BRACE ON RIGHT LEG IN PLACE. RIGHT LEG ELEVATED ON PILLOW, PLACED FRESH ICE PACK ON LEG. GAVE FRESH ICE WATER. PT HAS NO FURTHER NEEDS AT THIS TIME. CALL LIGHT IN REACH.
--- NOTE | 2017-03-06 00:37 | NUR ---
BROUGHT PT WARM BLANKET PER PT REQUEST. NO FURTHER NEEDS. CALL LIGHT IN REACH.
--- NOTE | 2017-03-06 01:18 | NUR ---
PT INCONTINENT OF URINE AND BM, LARGE AMOUNT OF LOOSE STOOL. CLEANED PT UP AND APPLIED NEW ATTENDS. NEW BEDDING. PT HAS NO FURTHER NEEDS. CALL LIGHT IN REACH.
--- NOTE | 2017-03-06 04:16 | NUR ---
pt complained of 7/10 pain in her right leg. gave norco for pain. no further needs. call light in reach.
--- NOTE | 2017-03-06 05:07 | NUR ---
PT WATCHING SITTING UP IN BED WATCHING TV. PT REPORTS 0/10 PAIN. STATES "THERE IS NONE, ITS GONE;" WHEN ASKED ABOUT HER PAIN. OXYCODONE 10MG COVERED PAIN WELL. DISCUSSED BREAKFAST WITH PT, SHE HAD ORDERED URDU TOAST, AND THEN AGREED TO ADD SCAMBLED EGG, WILL ORDER FOR PT THIS AM. NO FURTHER NEEDS. CALL LIGHT IN REACH.
--- NOTE | 2017-03-06 05:34 | NUR ---
PT HAD UNEVENTFUL NIGHT, SLEPT MAJORITY OF SHIFT. PAIN WELL CONTROLLED WITH NORCO. INCONTINENT OF URINE AND BM. BRACE ON RIGHT LEG IN PLACE. ALERT AND ORIENTED X4, PLEASENT, AND COOPERATIVE.
--- NOTE | 2017-03-06 07:29 | NUR ---
REPORT RECIEVED FROM TRISHA DIA. PT SLEEPING. HAD LARGE BM DURING NIGHT. GIVEN ONE NORCO FOR PAIN.
--- NOTE | 2017-03-06 10:57 | NUR ---
PHYSICAL THERAPY WORKING WITH PATIENT. PAIN MEDICATION ADMINISTERED.
--- NOTE | 2017-03-06 11:31 | NUR ---
PATIENT AWAKE IN BED. CLEANED ROOM. EMPTYED GARBAGE. COMPLETE LINEN CHANGE. GAVE PATIENT COMPLETE BED BATH. HOYERED PATIENT TO HER CHAIR. SET PATIENT UP FOR BREAKFAST. FRESH ICE WATER. CALL LIGHT IN REACH.
--- NOTE | 2017-03-06 11:44 | NUR ---
PT CONTINUES TO SIT UP IN CHAIR. WILL STAY FOR LUNCH. TOLERATING WELL AFTER ADMINSTRATION OF PAIN MEDS
--- NOTE | 2017-03-06 12:51 | NUR ---
PATIENT WAS HOYERED BACK TO BED AND CHANGED. TOOK LUNCH TRAY AWAY. FRESH ICE WATER AND SODA. EMPTYED THE GARBAGE AND CLEANED UP ROOM.
--- NOTE | 2017-03-06 13:26 | NUR ---
PT BACK IN BED. APPEARS TO BE SLEEPING.
--- NOTE | 2017-03-06 13:40 | NUR ---
PLACED ICE AND REPOSITIONED PT DUE TO SOME DISCOMFORT. ADMINSTERED SCHEDULED MEDICATION. PT WATCHING TV.
--- NOTE | 2017-03-06 15:55 | NUR ---
PT APPEARS TO BE SLEEPING. RR 16
--- NOTE | 2017-03-06 16:34 | NUR ---
PATIENT AWAKE IN BED. FRESH POP AND ICE WATER. PICKE UP ROOM. CHANGED HER AND QTURNED HER. PATIENT HAS CALL LIGHT IN REACH.
--- NOTE | 2017-03-06 18:35 | NUR ---
PT WORKED WITH HOME ASSESSMENT NURSE. X2 TODAY. CALLED TO USE BEDPAN MULTIPLE TIMES. NORCO GIVEN FOR PAIN. REPOSITIONED Q2.
--- NOTE | 2017-03-06 20:15 | NUR ---
PT REPORTED 5/10 PAIN, GAVE NORCO FOR PAIN. PT LAYING IN BED WATCHING TV. ALERT AND ORIENTED X4. BRACE IN PLACE ON RIGHT LEG. GAVE FRESH ICE WATER. PT HAS NO FURTHER NEEDS. CALL LIGHT IN REACH.
--- NOTE | 2017-03-06 21:25 | NUR ---
pt appears to be sleeping, rr wnl and unlabored. lights and tv off in room.
--- NOTE | 2017-03-07 00:51 | NUR ---
pt called rn station. up on bedpan to void, also incontinent in depends. cleaned pt up, new depends and new gown. reports pain at 5/10, gave norco for pain. no further needs. call light in reach.
--- NOTE | 2017-03-07 02:52 | NUR ---
PT APPEARS ASLEEP. RR WNL AND UNLABORED.
--- NOTE | 2017-03-07 05:19 | NUR ---
PT HAD UNEVENTFUL NIGHT, SLEPT MAJORITY OF SHIFT. NORCO COVERS PAIN WELL. BRACE IN PLACE ON RIGHT LEG. PT INCONTINENT, ATTENDS IN PLACE. USES CALL LIGHT APPROPRIATLY. PHYSICAL THERAPY. ERNESTO LIFT. ALERT AND ORIENTED X4, PLEASENT.
--- NOTE | 2017-03-07 05:38 | NUR ---
PT SLEEPING. RR WNL AND UNLABORED. PT WOKE BREIFLY DURING BP ASSESSMENT, BUT QUICKLY FELL BACK ASLEEP. LIGHT OUT, TV OFF IN ROOM. CALL LIGHT IN REACH.
--- NOTE | 2017-03-07 07:09 | NUR ---
REPORT RECIEVED FROM TRISHA DIA. PT SLEEPING. SLEPT MOST OF NIGHT. NO BM. PAIN CONTROLLED WITH NORCO.
--- NOTE | 2017-03-07 09:09 | NUR ---
PT CALLED TO USE BEDPAN. TOLERATED WELL. DISCUSSED MOVING WITH KAYLA, PHYS. THER. WILL TRY TO STAND HER WITH ERNESTO BELT SHORTLY.
--- NOTE | 2017-03-07 10:03 | NUR ---
ASSISTED PHYS. THER. WITH STANDING PT AND PIVOTING TO CHAIR AT BEDSIDE. PT IS SEVERELY DECONDITIONED AND WAS UNABLE TO HELP MUCH.
--- NOTE | 2017-03-07 11:43 | NUR ---
PT SITTING UP IN CHAIR EATING LUNCH.
--- NOTE | 2017-03-07 12:52 | NUR ---
PT NAPPING IN CHAIR UNTIL AWOKEN FOR SCHED. MED. PT DENIES CONCERNS.
--- NOTE | 2017-03-07 14:58 | NUR ---
PT WORKED WITH PHSY THER. AGAIN. NOW BACK IN BED. PT DENIES CONCERNS.
--- NOTE | 2017-03-07 15:17 | NUR ---
PT CALLED FOR A PAIN PILL. RATES IT 01/21. RESTING IN BED WATCHING TV.
--- NOTE | 2017-03-07 16:11 | NUR ---
PATIENT AWAKE IN CHAIR. HOYERED HER BACK TO BED. FRESH ICE WATER. COLD SODA. PICKED UP ROOM. CHANGERED HER
--- NOTE | 2017-03-07 17:09 | NUR ---
PT STOOD AND PIVOTED TO CHAIR WITH 3 PERS. ASSIST. SAT IN CHAIR FOR SEVERAL HOURS. WORKED WITH PHYS. THER. X2. PAIN CONTROLLED WITH PRN NORCO.
--- NOTE | 2017-03-07 19:25 | NUR ---
SHIFT REPORT RECIEVED FROM DAY SHIFT. PATIENT RESTING IN BED. WALKING BOOT IN PLACE. CALL LIGHT WITHIN REACH. NO REQUEST AT THIS TIME.
--- NOTE | 2017-03-07 20:32 | NUR ---
PATIENT REQUESTED PAIN MEDICATION. SCHEDULED PAIN MEDS WERE DUE AND PATIENT STATED THAT FINE. WILL REASSESS.
--- NOTE | 2017-03-07 21:30 | NUR ---
PATIENT STATES PAIN HAS INCREASED FROM A 4/10 TO A 5/10. REQUESTED PRN PAIN MEDICATION. MEDICATION ADMINISTERED. ICE PACK PLACED ON RIGHT LEG OUTSIDE OF WALKING BOOT. PATIENT HAS NO OTHER REQUEST AT THIS TIME. CALL LIGHT WITHIN REACH. PATIENT REFUSING CHAITANYA LARKIN AT THIS TIME. AGREES TO PUT IT ON IN TWO HOURS.
--- NOTE | 2017-03-07 22:25 | NUR ---
PATIENT RESTING. EYES CLOSED. RR 14. BREATHING REGULAR, NONLABORED.
--- NOTE | 2017-03-07 22:41 | NUR ---
PATIENT COMPLAINES OF INCREASED PAIN IN HER RIGHT FOOT. PRN PAIN MEDS GIVEN AT 2135. MEDIACTION IS PRN Q4HR. PATIENT RATES PAIN INCREASED TO 7/10. PATIENT HAS AN ICE PACK ON OUTSIDE OF WALKING BOOT ON RIGHT FOOT. PATIENT REPOSITIONED FOR COMFORT. PEDAL PULSE SSTRONG BILATERALLY. SENSORY INTACT IN RIGHT FOOT. CAP REFILL <2 SEC. PATIENT STATES SHE WILL TRY TO REST UNTIL NEXT PRN PAIN MEDS CAN BE GIVEN. CALL LIGHT WITHIN REACH.
--- NOTE | 2017-03-08 00:16 | NUR ---
PATIENT COMPLAINS OF DISCOMFORT IN RIGHT ANKLE. PATIENT REPOSITIONED IN BED. FOOT OF BED ELEVATED. PILLOWS PLACE UNDER EFFECTED LEG AND ON LATERAL SIDE OF LEG FOR SUPPORT. WALKING BOOT REMOVED FOR COMFORT. ICE PACK REAPPLIED TO OUTSIDE OF IRENE WRAP DRESSING. WILL REASSESS IN 30MINS.
--- NOTE | 2017-03-08 00:46 | NUR ---
PATIENT REASSESSED. PATIENT RESTING WITH EYES CLOSED. RR 14. BREATHING REGULAR AND NONLABORED.
--- NOTE | 2017-03-08 01:12 | NUR ---
PATIENT RESTING IN BED. EYES CLOSED. RR 16. BREATHING NONLABORED.
--- NOTE | 2017-03-08 01:55 | NUR ---
PATIENT RESTING IN BED. EYES CLOSED. RR 14.
--- NOTE | 2017-03-08 03:30 | NUR ---
PATIENT RESTING IN BED, EYES CLOSED, RR 14.
--- NOTE | 2017-03-08 04:01 | NUR ---
PATIENT ALERTED STAFF THAT SHE WAS EXPERIENCING 7/10 PAIN IN HER BACK. PATIENT REQUESTED PRN PAIN MEDS, WHICH WERE GIVEN TO HER. PATIENT DENIES PAIN IN HER RIGHT EXTREMITY AT THIS TIME. DRESSING IS C/D/I. WALKING BOOT IS NOT INPLACE AT THIS TIME FOR COMFORT. RIGHT HEEL IS FLOATED WITH A PILLOW. HEEL PROTECTOR ON LEFT FOOT. PATIENT REFUSING TO WEAR CHAITANYA HOES ON LEFT LEG AT THIS TIME. CALL LIGHT IS WITHIN REACH. PATIENT HAS NO FURTHER REQUEST AT THIS TIME.
--- NOTE | 2017-03-08 05:38 | NUR ---
PATIENT RESTED ON AND OFF DURING SHIFT. PATIENT REQUIRED PRN PAIN MEDS X2. PATIENT REQUIRED FREQUENT REPOSITIONING FOR COMFORT. WALKING BOOT REMOVED FOR COMFORT. PATIENT HAS REFUSED TO WEAR CHAITANYA HOES ON HER LEFT LEG DURING THE SHIFT. ICE PACK INPLACE. PICC IN RIGHT ARM HAD GOOD BLOOD RETURN AND IS HEPA-LOCKED. PATIENT IS A 2P ERNESTO. YESTERDAY PIVOT TO CHAIR WITH 3PA. WALKING BOOT TO BE ON DURING AMBULATION. LUNGS CLEAR. DENIES N/V.
--- NOTE | 2017-03-08 06:40 | NUR ---
MORNING MEDICATIONS GIVEN PER ORDER. PATIENT REPOSITIONED. PATIENT REQUESTING PAIN MEDICATION WHEN NEXT PRN AVAILABLE. WILL PASS ON TO DAY SHIFT.
--- NOTE | 2017-03-08 07:32 | NUR ---
RECIEVED BEDSIDE REPORT FROM TRISHA HANSEN AND TRISHA DENNIS. PT SLEEPING IN BED, BREATHING EVEN AND UNLABORED. PT HAS ICE PACK TO RIGHT ANKLE, DRESSING C/D/I. CONFIMED WITH DR ESPITIA THAT THE WALKING BOOT IS TO BE ON AT ALL TIMES.
--- NOTE | 2017-03-08 10:16 | NUR ---
PT COOPERATIVE WITH CARES, USED BEDPAN, ATTEND CHANGED. PHYSICAL THERAPY IN ROOM WORKING WITH PT. PLAN OF DAY IS TO GET UP IN CHAIR. PT AGREES WITH THIS PLAN.
--- NOTE | 2017-03-08 13:44 | NUR ---
PT CHANGED AND UP TO CHAIR. BED LINENS CHANGED. PT VERY COOPERATIVE WITH CARES. BOOT IS ON. DRESSING C/D/I. PT DECLINED SHOWER AT THIS TIME, BUT MAY AGREE TO A BED BATH.
--- NOTE | 2017-03-08 15:44 | NUR ---
1 TAB PERCOCET GIVEN. 2 TABS ACCIDENTLY PULLED, 0.5 TAB WASTED IN MED ROOM WITH [employer]IST, 0.5 TAB WASTED IN MED ROOM WITH MICHAELA Pinto RN.
--- NOTE | 2017-03-08 19:33 | NUR ---
SHIFT REPORT RECIEVED. PATIENT UP IN CHAIR. WALKING BOOT IN PLACE ON RIGHT LEG. PATIENT DENIES PAIN AT THIS TIME. HEEL PROTECTORS ON LEFT FOOT. CALL LIGHT WITHIN REACH. PATIENT REQUESTING TO GO BACK TO THE BED AFTER SHIFT CHANGE. NO FURTHER REQUEST AT THIS TIME.
--- NOTE | 2017-03-08 20:35 | NUR ---
EVENING MEDS GIVEN PER ORDERS. SHIFT ASSESSMENT COMPLETED AND DOCUMENTED. PATIENT REPOSITIONED IN BED. WALKING BOOT ON RIGHT LEG. PATIENT REPORTS PAIN AT A 3/10 IN THE RIGHT LEG. SCHEDULED PAIN MEDICATION GIVEN. PATIENT REPORTS NOT HAVING A BOWEL MOVEMENT FOR AT LEAST TWO DAYS. DISCUSSED THE PRN MEDICATION AVAILABLE FOR CONSTIPATION AND PATIENT REQUESTED THIS MEDICATION AT THIS TIME. CALL LIGHT WITHIN REACH. NO FURTHER REQUEST AT THIS TIME.
--- NOTE | 2017-03-08 22:20 | NUR ---
PATIENT RESTING IN BED. EYES CLOSED. RR 14. CALL LIGHT WITHIN REACH.
--- NOTE | 2017-03-08 23:30 | NUR ---
PATIENT RESTING IN BED. EYES CLOSED. RR 14. BREATHING REGULAR AND NONLABORED. HOB ELEVATED TO 45 DEGREES. FOOT OF BED SLIGHTLY ELEVTAED. RIGHT FOOT IN WALKING BOOT AND ELEVATED ON A PILLOW. SECOND PILLOW ALONG LATERAL SIDE OF RIGHT LEG FOR SUPPORT AND COMFORT. ICE PACK ALONG SIDE OF RIGHT ANKLE. CALL LIGHT WITHIN REACH.
--- NOTE | 2017-03-09 01:12 | NUR ---
PATIENT IS RESTING IN BED WITH EYES CLOSED, RR 17. PATIENS RIGHT FOOT REMAINS ELEVATED ON PILLOW AND HEEL IS FLOATED. CALL LIGHT IN REACH.
--- NOTE | 2017-03-09 03:28 | NUR ---
PATIENT IS RESTING IN BED WITH EYES CLOSED, RR 16
--- NOTE | 2017-03-09 05:21 | NUR ---
PATIENT REQUESTED PRN PAIN MEDICATION FOR 6/10 PAIN IN HER RIGHT ANKLE. PRN PAIN MEDS GIVIEN PER ORDER. WALKING BOOT IS IN PLACE ON RIGHT LEG. DRESSING C/D/I. HEEL PROTECTOR ON LEFT FOOT. PATIENT REFUSES TO WEAR CHAITANYA HOSE AT THIS TIME. PATIENT DENIES TOILETING NEEDS OR JORGE CARE AT THIS TIME. PATIENT DENIES ANY FURTHER NEEDS AT THIS TIME. CALL LIGHT WITHIN REACH. VITAL SIGNS TAKE AT THIS TIME AND MORNING MEDICATIONS GIVIEN PER ORDER.
--- NOTE | 2017-03-09 05:49 | NUR ---
PATIENT HAS RESTED ON AND OFF THROUGHOUT SHIFT. PATIENT IN BED WITH WALKING BOOT ON RIGHT LOWER LEG. IRENE WRAP DRESSING ON RIGHT ANKLE IS C/D/I. RIGHT LEG IS FLOATED ON A PILLOW FOR COMFORT. HEAL PROTECTOR ON LEFT FOOT. PATIENT REFUSED CHAITANYA HOSE ON THE LEFT LEG. ICE PACK WAS PLACED ON RIGHT LEG OUTSIDE THE BOOT. PICC ON RIGHT ARM RETURNED BLOOD AND IS HEPA-LOCKED. ADA DIET, TOLERTING WELL. LAST BM REPORTED 03/06/17. PRN MEDS FOR CONSTIPATION GIVEN WITH PM MEDS 03/08/17. NO RESULTS AT THIS TIME. BOWEL SOUNDS ACTIVE AND PATIENT DENIES ABDOMINAL DISCOMFORT. PAIN CONTROLED WITH SCHEDULED PAIN MEDS AND PRN PAIN MEDS X1.
--- NOTE | 2017-03-09 07:12 | NUR ---
RECIEVED BEDSIDE REPORT FROM TRISHA HANSEN AND TRISHA DENNIS. PT SLEEPING QUIETLY, BREATHING EVEN AND UNLABORED.
--- NOTE | 2017-03-09 09:30 | NUR ---
PT UP TO CHAIR FOR BREAKFAST. PT HAD A BEDBATH WITH HAIR WASH. PT HAD A SMEAR BM, FEELS LIKE SHE MAY CONTINUE. LEG IS ELEVATED.
--- NOTE | 2017-03-09 13:54 | NUR ---
PT IS COMFORTABLE SITTING IN HER CHAIR. LEG IS ELEVATED. GAVE SCHEDULED GABAPENTIN FOR PAIN.
--- NOTE | 2017-03-09 17:57 | NUR ---
PT UP TO CHAIR FOR MEALS. PT HAD BEDBATH THIS SHIFT. PAIN CONTROLLED WITH PRN PAIN MEDICATION. NO COMPLAINTS OF NAUSEA. BOOT ON AT ALL TIMES. TRANSFER VIA 2 PRS ERNESTO.
--- NOTE | 2017-03-09 19:50 | NUR ---
REPORT RECIEVED FROM DAY SHIFT AT CHANGE OF SHIFT. PATIENT RESTING IN BED. EYES CLOSED. RR 14. CALL LIGHT WITHIN REACH.
--- NOTE | 2017-03-09 20:55 | NUR ---
PATIENT ASSESSMENT COMPLETED AND DOCUMENTED. EVENING MEDS GIVEN PER ORDER. PATIENT REPORTED 5/10 PAIN IN HER RIGHT FOOT AND RECIEVED HER SCHEDULED PAIN MEDICATION. RIGHT LEG WAS POSITIONED FOR COMFORT WITH THE HEEL FLOATED. ICE PACK WAS PLACED ALONG FOAM SECTION OF WALKING BOOT, WHICH IS IN PLACE PER ORDERS. IRENE WRAP IS C/D/I. CHAITANYA HOSE AND HEEL PROTECTOR WERE PLACED ON LEFT LEG. JORGE CARE WAS PERFORMED, PATIENT HAD BM X1. PATIENT REPOSITIONED IN BED FOR COMFORT. PICC IN RIGHT ARM RETURNED BLOOD AND WAS HEPA-LOCKED PER ORDER. PATIENT LUNGS ARE CLEAR IN UPPER LOBED BILATERALLY AND DIMINISHED IN LOWER LOBES BILATERALLY. PATIENT ENCOURAGED TO TURN, COUGH, AND DEEP BREATH. IS ENCOURAGED. CALL LIGHT WITHIN REACH. PATIENT DENIES FURTHER NEEDS AT THIS TIME.
--- NOTE | 2017-03-09 23:21 | NUR ---
PATIENT RESTIN IN BED. EYES CLOSED. RR 16. CALL LIGHT IN REACH.
--- NOTE | 2017-03-10 01:30 | NUR ---
PATIENT RESTING IN BED. EYES CLOSED. RR 14. BREATHING NONLABORED. CALL LIGHT WITHIN REACH.
--- NOTE | 2017-03-10 02:56 | NUR ---
PATIENT REQUESTED PRN PAIN MEDICATION FOR 8/10 PAIN IN HER RIGHT LEG. MEDICATION GIVEN PER ORDER. RIGHT LEG REPOSITIONED FOR COMFORT. ICE PACK IN PACK ON RIGHT LEG. PATIENT DENIES TOILETING OR JORGE CARE AT THIS TIME. WALKING BOOT IN PLACE ON RIGHT LEG. CHAITANYA HOSE AND HEEL PROTECTOR IN PLACE ON LEFT FOOT. PATIENT DENIES FURTHER NEEDS AT THIS TIME. CALL LIGHT IN REACH.
--- NOTE | 2017-03-10 04:26 | NUR ---
JORGE CARE PROVIDED. PATIENT REPOSITIONED FOR COMFORT. WALKING BOOT IN PLACE. HEEL PROTECTOR AND CHAITANYA HOSE IN PLACE ON LEFT FOOT. NO FURTHER NEEDS AT THIS TIME. CALL LIGHT IN REACH.
--- NOTE | 2017-03-10 04:55 | NUR ---
PATIENT RESTING OFF AND ON THROUGHOUT THE SHIFT. PATIENT REQUIRED PRN PAIN MEDS X1. PATIENT REPOSITIONED OFTEN FOR COMFORT AND GIVEN ICE PACKS FOR EFFECTED LEG. WALKING BOOT IN PLACE ON RIGHT LEG. IRENE WRAP IS C/D/I. PATIENT INCONTINENT AND GIVEN JORGE CARE Q2HR OR PRN. CHAITANYA HOSE ON LEFT LEG WITH HEEL PROTECTOR. PATIENT HAS PICC IN RIGHT ARM. GOOD BLOOD RETURN AND HEPA-LOCKED PER ORDERS. LUNG SOUNDS CLEAR IN UPPER LOBES BILATERALLY AND DIMINISHED IN THE LOWER LOBES BILATERALLY. PATIENT DENIES NAUSEA OR ABDOMINAL DISCOMFORT. BOWEL SOUNDS ACTIVE IN ALL QUADRANTS. TOLERATING ADA DIET. PATIENT AAOX3. PATIENT IS A ERNESTO TRANSFER.
--- NOTE | 2017-03-10 05:35 | NUR ---
MORNING MEDS GIVEN PER ORDERS. PATIENT RESTING IN BED. WALKING BOOT IN PLACE. DRESSING C/D/I. PATIENT DENIES NEED FOR TOILETING OR JORGE CARE. PATIENT REPORTS 4/10 PAIN AND REQUEST PRN PAIN MEDS WHEN TIME FOR NEXT AVAILABLE DOSE PER ORDERS. NO FURTHER REQUEST AT THIS TIME. CALL LIGHT IN REACH.
--- NOTE | 2017-03-10 07:30 | NUR ---
RECIEVED BEDSIDE REPORT FROM TRISHA HANSEN AND TRISHA DENNIS. PT SLEEPING, BREATHING EVEN AND UNLABORED.
--- NOTE | 2017-03-10 09:53 | NUR ---
patient is a swing bed, i changed her attend and took her morning vital signs, she asked for a diet coke, and she was content watching best girls.
--- NOTE | 2017-03-10 10:42 | NUR ---
PT RESTING IN BED, AGREES ON PLAN OF CARE TO GET UP TO CHAIR BEFORE LUNCH.
--- NOTE | 2017-03-10 13:36 | NUR ---
PT UP TO CHAIR WATCHING TV. PT HAD BEDBATH.
--- NOTE | 2017-03-10 17:59 | NUR ---
PT UP TO CHAIR MOST OF THE DAY. NO REQUESTS FOR PRN PAIN MEDS. PT TRANSFER VIA ERNESTO LIFT. WALKING BOOT ON, ADJUSTED FOR COMFORT NEEDED.
--- NOTE | 2017-03-10 21:19 | NUR ---
PT LAYING IN BED WATCHING TV. ALERT AND ORIENTED X4, PLEASENT DEMEANOR. HAS HAD 2 LARGE LOOSE BM SINCE BEGINNING OF SHIFT, 1 IN BEDPAN AND 1 INCONTINENT. PT RATES PAIN AT 2/10 AT THE MOMENT. GAVE SCHEDULED HYDROCODONE FOR PAIN. DRESSING CLEAN DRY AND INTACT, NO SHADOWING. BOOT IN PLACE OF RIGHT LEG. CALL LIGHT IN REACH. PT HAS NO FURTHER NEEDS AT THIS TIME.
--- NOTE | 2017-03-10 22:24 | NUR ---
PT APPEARS TO BE SLEEPING. RR WNL AND UNLABORED.
--- NOTE | 2017-03-11 01:10 | NUR ---
PT COMPLAINED OF 4/10 PAIN, GAVE NORCO FOR PAIN. ALSO GAVE VANILLA ICE CREAM, PER PT REQUEST. NO FURTHER NEEDS.
--- NOTE | 2017-03-11 03:55 | NUR ---
pt complained of 6/10 pain "in my legs," gave norco for pain. no further needs. call light in reach.
--- NOTE | 2017-03-11 04:39 | NUR ---
pt had uneventful night, slept majority of shift. incontinent of bm x2 overnight. dressing to r leg clean dry and intact, no shadowing. boot in place. pt alert and oriented x4, uses call light appropriatly. pain well controlled with norco.
--- NOTE | 2017-03-11 06:01 | NUR ---
pt resting quietly. denies pain at this time. call light in reach.
--- NOTE | 2017-03-11 08:30 | NUR ---
FOUND PATIENT'S 0600 CARDIZEM AT BEDSIDE. VITAL SIGNS TAKEN, PATIENT GIVEN MED. FLOOR PROTOCOLS FOLLOWED. MD NOTIFIED. PATIENT IN NO DISTRESS.
--- NOTE | 2017-03-11 09:39 | NUR ---
PATIENT SLEEPS IN NO DISTRESS.
--- NOTE | 2017-03-11 10:51 | NUR ---
Patient up to shower chair with dorian lift. 2 person assist. Patient into shower, wing/cath care done. Patient assists as he is able. Patient back to bed. Toes on LLE turn purple when dependant, back to normal color when patient back to bed. ROD MILL TENDER in to take vital signs. Patient very happy to have shower, "thank you so much i feel so much better"
--- NOTE | 2017-03-11 13:42 | NUR ---
TALKED WITH MADDI, PT CAREGIVER AND SHE STATED THAT SHE HAD TALKED WITH PT SON KYM, AND WAS TOLD TO DO WHAT IS BEST FOR HER HE COULDN'T FIND MORE CARE GIVERS. FAXED CHART NOTES TO [facility] AFTER TALKING WITH THEM. THESE INCLUDED FACESHEET, H AND P, OP NOTES, CONSULT, PROG NOTES, IMAGING, MEDS, LAB, AND PT EVAL AND NOTES. FAXED ORDERS TO DR ESPITIA OFFICE FOR ADMISSION TO [facility].
--- NOTE | 2017-03-11 13:50 | NUR ---
Patient up to bsc twice for 2 large liquid bowel movements. Patient tolerates poorly. Patient has a very diffucult time standing to transfer. Dianna care done. Patient having diarrhea.
--- NOTE | 2017-03-11 14:11 | NUR ---
This RN assists patient to work with physical therapy. Patient back to bed. Patient medicated with [place] for 6/10 pain to right foot.
--- NOTE | 2017-03-11 15:09 | NUR ---
Patient ready to be discharged to [facility]. This RN removes PICC line, patient tolerates well.
--- NOTE | 2017-03-11 15:45 | NUR ---
Patient leaves to [facility] via wheelchair. Report called to "Mary" TRISHA at [facility].
== END 2017-03-11 15:30 | disposition home or self-care (01) | DRG 494 ==
LOC: MS 10:10
PROVIDERS: ADMIT Specialist
PROC: 0QHJ05Z Insertion of External Fixation Device into Right Fibula, Open Approach (ICD-10-PCS; 2017-03-04)
PROC: 3E0T3CZ (ICD-10-PCS; 2017-03-04)
PROC: 3E0T3CZ (ICD-10-PCS; 2017-03-04)
PROC: 3E0T33Z Introduction of Anti-inflammatory into Peripheral Nerves and Plexi, Percutaneous Approach (ICD-10-PCS; 2017-03-04)
PROC: 0QSJ04Z Reposition Right Fibula with Internal Fixation Device, Open Approach (ICD-10-PCS; principal; 2017-03-04 08:45)
DX: S82.841D Displaced bimalleolar fracture of right lower leg, subsequent encounter for closed fracture with routine healing (principal); W01.0XXD Fall on same level from slipping, tripping and stumbling without subsequent striking against object, subsequent encounter; G89.18 Other acute postprocedural pain
CPT/HCPCS: 01480; 36415; 64445; 73600; 80053; 81001; 85025; 87088; 94760; 94762; 97110; 97162; 97530; C1713; J0690; J1335; J1650; J2250; J2405; J2704; J3010; L4386